=== PATIENT | female | born 1960 | race Caucasian/White ===

== ENCOUNTER → 2017-11-01 12:13 | Outpatient (CLI) | payer BC, SELFPAY ==
[2017-11-01 16:05] LABS: Hep C Virus Ab w/Reflex Quant NEGATIVE s/c (NEGATIVE)
== END ==
PROVIDERS: Visit Provider Internal Medicine Gastroenterology
DX: Z11.59 Encounter for screening for other viral diseases (principal)
CPT/HCPCS: 36415; 86803

== ENCOUNTER 2017-11-30 08:05 | Day surgery (SDC) | payer OTHER, SELFPAY ==
--- NOTE | 2017-11-30 | PATH_ITS ---
[facility] Accession Number: [id number] . 01 Material submitted: . PART A: SMALL BOWEL BIOPSY PART B: GASTRIC POLYPS . 02 Diagnosis: A. Small Bowel, Biopsy: Small bowel mucosa with no diagnostic abnormality. Negative for active inflammation, features of sprue, dysplasia or malignancy. . B. Gastric Polyps: Fundic gland polyp. No evidence of Helicobacter organisms on H/E stain. Negative for intestinal metaplasia, dysplasia or malignancy. MR/12/01/2017 . 02 Electronically signed: . Otilio Dominguez MD, PhD, Pathologist NPI- [id number] . 01 Gross description: . Received two formalin-filled containers, both labeled with the patient's name: . A. In a container labeled small bowel #1, the specimen consists of a 0.3 cm portion of tissue, entirely submitted in cassette A. B. In a container labeled gastric polyps, the specimen consists of a 0.2 cm portion of tissue, entirely submitted in cassette B. ([id number]) /FRR . 02 Pathologist provided ICD-10: K31.7, R19.4 . 02 CPT . 260283, 831021 Performed at: 01 [facility] [address] [facility], [place], [place] [id number] MD Iftikhar Felipe MD Phone: [phone] Performed at: 02 [facility] [address] [place], [place] [id number] MD Joaquin Lobato MD Phone: [phone]
[2017-11-30 08:16] VITALS: BP 148/88; PULSE 74; RESP 15; TEMP 36.2; O2SAT 98; BMI 35.9
[2017-11-30] MEDS: SODIUM CHLORIDE 0.9% 1,000 ML 100 ML IV (08:32)
--- NOTE | 2017-11-30 09:23 | PM.PREOP ---
Pre-operative Note Interval Note Pre-op Check: Yes History & Physical Reviewed by Physician and Yes Exam Performed Changes: No ASA Class (for procedural sedation): II
--- NOTE | 2017-11-30 09:39 | PM.OP.ENDO ---
Operative Date/Time/Diagnoses Date of procedure: 11/30/17 Time of procedure: 09:39 Pre-op diagnosis: See indications Post-op diagnosis: same Procedure & Clinicians Study performed: EGD with biopsy Same procedure as scheduled: Yes Indications: Bloating abdominal discomfort and change in bowel movements Surgeon: Ruth Ann Rodriguez Procedure Notes Procedure in detail: After informed consent was obtained the patient was placed in left lateral decubitus position. The video upper scope was introduced into the oropharynx with the patient's helpful to to the esophagus. The esophagus stomach and duodenum were carefully examined. On withdrawal retroflexed view the GE junction was performed. The scope was removed. The patient tolerated the procedure well. Blood loss none Complications none Sedation Versed 8 mg and fentanyl 100 mcg IV titration Total sedation time 12 min Findings 1. Normal esophagus 2. Multiple gastric polyps biopsied to rule out adenoma. 3. Normal duodenal bulb and sweep biopsies taken to rule out celiac disease Patient will need follow-up with Dr. Dunham to discuss biopsies and further workup.
[2017-11-30 09:42] VITALS: BP 117/76; PULSE 71; RESP 15; TEMP 36; O2SAT 96
[2017-11-30] MEDS: MIDAZOLAM 5 MG/5 ML VIAL IV (09:44)
[2017-11-30] MEDS: fentaNYL 250 MCG/5 ML INJ IV (09:45)
[2017-11-30 09:47] VITALS: BP 128/77; PULSE 82; RESP 14; O2SAT 96
[2017-11-30 09:52] VITALS: BP 126/92; PULSE 102; RESP 18; TEMP 36.1; O2SAT 94
[2017-11-30 10:05] VITALS: BP 121/81; PULSE 80; RESP 16; TEMP 36.2; O2SAT 95
--- NOTE | 2017-11-30 10:21 | SUR.PHASEII ---
pt tolerating sips of water and coffee.
== END 2017-11-30 10:21 | disposition home or self-care (01) ==
PROVIDERS: Visit Provider Internal Medicine Gastroenterology
PROC: 0DJ08ZZ Inspection of Upper Intestinal Tract, Via Natural or Artificial Opening Endoscopic (ICD-10-PCS; CPT 43235; principal; 2017-11-30 09:00)
DX: K31.84 Gastroparesis (principal); K31.7 Polyp of stomach and duodenum; R14.0 Abdominal distension (gaseous); R19.4 Change in bowel habit; E11.9 Type 2 diabetes mellitus without complications; E66.9 Obesity, unspecified; Z68.36 Body mass index [BMI] 36.0-36.9, adult; Z79.4 Long term (current) use of insulin; Z86.010 Personal history of colon polyps; Z87.891 Personal history of nicotine dependence; Z79.899 Other long term (current) drug therapy
CPT/HCPCS: 43239; J2250; J3010

== ENCOUNTER → 2018-12-11 07:31 | Outpatient (CLI) | payer OTHER, SELFPAY ==
--- NOTE | 2018-12-11 | DI.RAD.S_ITS ---
PROCEDURE: FL BARIUM SWALLOW INDICATIONS: Other dysphagia COMPARISON: None. FINDINGS: Function: There is decreased esophageal peristalsis. Delayed esophageal clearance. There is normal transit of a calibrated barium tablet through the esophagus into the stomach. Spontaneous gastroesophageal reflux, which included the barium tablet Morphology: Air-contrast images demonstrate normal mucosal morphology. Single contrast views show no esophageal strictures, extrinsic mass effects, or diverticula. Limited images of the stomach demonstrate normal appearance. IMPRESSION: Esophageal dysmotility. Spontaneous gastroesophageal reflux to the lower third of the esophagus Dictated by: Gio Mosley M.D. on 12/11/2018 10:28 Approved by: Gio Mosley M.D. on 12/11/2018 at 10:34
== END ==
PROVIDERS: PCP Family Medicine; Visit Provider Otolaryngology
DX: R13.19 Other dysphagia (principal); K22.0 Achalasia of cardia; K21.9 Gastro-esophageal reflux disease without esophagitis
CPT/HCPCS: 74220

== ENCOUNTER → 2019-01-01 16:36 | Outpatient (CLI) | payer OTHER, SELFPAY | PROVIDERS: PCP Family Medicine; Visit Provider Orthopaedic Surgery Foot and Ankle Surgery | DX: Z01.818 Encounter for other preprocedural examination (principal) | CPT/HCPCS: 93005 ==

== ENCOUNTER 2020-02-10 11:58 | Emergency (ER) | payer OTHER, SELFPAY ==
[2020-02-10] VITALS (22 sets, daily range): BP systolic 113–224; BP diastolic 57–97; PULSE 62–88; RESP 12–24; TEMP 36.7; O2SAT 96–100; BMI 36.5
--- NOTE | 2020-02-10 12:10 | DI.RAD.S_ITS ---
PROCEDURE: XR CHEST 1V INDICATIONS: chest pain TECHNIQUE: One view of the chest was acquired. COMPARISON: [facility], , CHEST 1 VIEW, 04/05/2015, 15:25. FINDINGS: Surgical changes and devices: None. Lungs and pleura: Lungs are clear. No pleural effusions or pneumothorax. Mediastinum: Mediastinal contours appear normal. Heart size is normal. Bones and chest wall: No suspicious bony lesions. Overlying soft tissues appear unremarkable. IMPRESSION: No evidence of an acute cardiopulmonary abnormality. Dictated by: Danny Craft D.O. on 02/10/2020 at 11:40 Approved by: Danny Craft D.O. on 02/10/2020 at 11:41
[2020-02-10 12:39] LABS: Add Manual Diff / Slide Review NO; Basophils Absolute Auto 100 /uL (0-100); Basophils Percent Auto 1.4 % (0-2); Eosinophils Absolute Auto 100 /uL (0-450); Eosinophils Percent Auto 1.8 % (2-4); Hematocrit 42.5 % (36-46); Hemoglobin 14.5 g/dL (12.0-16.0); Lymphocytes Absolute Auto 2800 /uL (1100-4500); Lymphocytes Percent Auto 41.2 % (25-40); Mean Corpuscular HGB Conc 34.1 % (30-36); Mean Corpuscular Hemoglobin 32.1 PG (26-34); Mean Corpuscular Volume 93.9 fL (80-100); Monocytes Absolute Auto 600 /uL (0-900); Monocytes Percent Auto 8.1 % (3-14); Neutrophils Absolute Auto 3300 /uL (1500-7000); Neutrophils Percent Auto 47.5 % (50-75); Platelet Count 207 X10^3/uL (150-400); Red Blood Cell Count 4.53 X10^6/uL (4.0-5.2); Red Cell Distribution Width 12.2 % (11.6-14.8); White Blood Cell Count 6.8 X10^3/uL (4.5-11.0)
[2020-02-10 12:41] LABS: Prothrombin Time 11.8 SECONDS (10.1-12.7)
[2020-02-10 12:44] LABS: PTT Partial Thromboplastin Tim 32 SECONDS (26.4-36.2)
--- NOTE | 2020-02-10 12:46 | PC.NURSE ---
Addendum entered by Rikki Christie 02/10/20 12:46: She recently had a bowel movement and it was darker than normal. She takes OTC prilosec but does not complain of heart burn. She has been experiencing chest pain for a long time and has associated it with the gastroparesis but has not had shortness of breathe until recently. She says that her shortness of breathe seems to happen around the time when her chest pain and SOB get worse. Original Note: patient has a history of gastroparesis and has been having abnormal bm for some time.
[2020-02-10 12:47] LABS: Alanine Aminotransferase 15 IU/L (<35); Albumin 4.2 g/dL (3.5-5.0); Albumin Globulin Ratio 1.4 (1.0-2.8); Alkaline Phosphatase 124 U/L (38-126); Aspartate Aminotransferase 23 IU/L (14-36); BUN Creatinine Ratio 24.1 (6-22); Bilirubin Total 0.7 mg/dL (0.2-1.3); Blood Urea Nitrogen 19 mg/dL (7-17); Calcium 9.2 mg/dL (8.4-10.2); Carbon Dioxide 29 mmol/L (22-32); Chloride 104 mmol/L (98-107); Creatine Kinase 50 U/L (30-135); Estimated Glomerular Filt Rate > 60.0 mL/min (>60); Globulin 3.1 g/dL (1.7-4.1); Glucose 191 mg/dL (70-100); HEMOLYSIS 16 (0-50); Lipase 165 U/L (23-300); Sodium 138 mmol/L (137-145); Total Protein 7.3 g/dL (6.3-8.2)
[2020-02-10 12:59] LABS: Troponin I < 0.012 ng/mL (0.01-0.034)
[2020-02-10 13:23] LABS: D Dimer 257 ng/mL (<230)
[2020-02-10 13:33] LABS: NT-proBNP (BNP-Adult 18+) 59 pg/mL (<125)
--- NOTE | 2020-02-10 13:40 | ED.CHESTPAIN ---
HPI - Chest Pain <JOHN Roche - Last Filed: 02/10/20 17:50> General Chief Complaint: Chest Pain Stated Complaint: Chest Pains and SOB Time Seen by Provider: 02/10/20 12:52 Source: patient Mode of arrival: Ambulatory Limitations: no limitations History of Present Illness HPI narrative: The patient is a 59-year-old female former smoker with history of atypical chest pain, type 2 diabetes, gastroparesis who presents with a chief complaint of episodic chest pain over the past week. It occurs about once a day, regardless of what she is doing. Today it started at 10:30 while she was cleaning. She says there is associated lightheadedness and dizziness, and she sits down and rest. Sometimes I get better, sometimes it lingers for a while. She denies any fevers, or cough. She complains of associated shortness of breath. No known coronavirus exposure, though her boyfriend is in the hospital for a liver resection. She does state that she is stressed. She does have a history of gastroparesis related to her type 2 diabetes. Denies any muscle aches or chills. States that she has had episodes like this before, it has seen a gunner's mate, and is supposed to get an outpatient monitor next week. She denies any recent immobility or surgeries. Related Data Previous Rx's Medication Instructions Recorded azithromycin 250 mg tablet See Rx Instructions PO .COMPLEX #6 09/09/18 tab benzonatate 100 mg capsule 100 mg PO BID PRN #14 cap 09/09/18 ketorolac 10 mg PO TID PRN #14 tab 02/10/20 Allergies Allergy/AdvReac Type Severity Reaction Status Date / Time loracarbef [From LORABID] Allergy Unknown Verified 09/09/18 12:02 loratadine [From CLARITIN] Allergy Unknown Verified 09/09/18 12:02 meperidine [From DEMEROL] Allergy Unknown Verified 09/09/18 12:02 Review of Systems <JOHN Roche - Last Filed: 02/10/20 17:50> Review of Systems Narrative: GENERAL: Denies chills, fatigue, malaise, fever, sweats. HEENT: Denies sinus pain, ear pain, sore throat, difficulty swallowing, dizziness. RESPIRATORY: See HPI CARDIOVASCULAR: See HPI GASTROINTESTINAL: Denies nausea, vomiting, abdominal pain, diarrhea, constipation, melena. : Denies dysuria, frequency, incontinence, hematuria, urinary retention. MUSCULOSKELETAL: denies weakness, joint pain, or bony pain SKIN: Denies rash, skin lesions, or other NEUROLOGIC: Denies weakness, headache, numbness, change in speech, confusion, seizures, incoordination. PSYCHIATRIC: No concerning psychosocial issues. 12 point review of systems is negative except for those stated above Patient History <RONEL Roche - Last Filed: 02/10/20 17:50> Social History household members: significant other Smoking Status: Former smoker Smoking Status: Former smoker alcohol intake frequency: 0-2 drinks per day Substance Use Type: marijuana Exam <RONEL Roche - Last Filed: 02/10/20 17:50> Narrative Exam Narrative: GENERAL: This is a well-nourished, well-developed patient, in no acute distress HEAD: Atraumatic. Normocephalic. No temporal or scalp tenderness. EYES: Pupils equal round and reactive. Extraocular motions intact. No scleral icterus. No injection or drainage. ENT: Nose without bleeding, purulent drainage or septal hematoma. Throat without erythema, tonsillar hypertrophy or exudate. Uvula midline. Airway patent. NECK: Trachea midline. No JVD or lymphadenopathy. Supple, nontender, no meningeal signs. CARDIOVASCULAR: Regular rate and rhythm RESPIRATORY: Clear to auscultation. Breath sounds equal bilaterally. No wheezes, rales, or rhonchi. No cough. No increased respiratory effort. No accessory muscle use. Pain to palpation of right-sided costochondral joints, pain to anterior posterior chest wall compression as well as lateral chest wall compression. GASTROINTESTINAL: Abdomen soft, non-tender, nondistended. No hepato-splenomegaly, or palpable masses. No guarding. Active bowel sounds all 4 quadrants EXTREMITIES: No clubbing, cyanosis, or edema. No joint tenderness, effusion, or edema noted. BACK: Nontender without deformity or crepitance. No flank tenderness. NEURO: AOx3. SKIN: No rash or erythema. Initial Vital Signs Initial Vital Signs: Vital Signs Temperature 98.1 F 02/10/20 12:11 Pulse Rate 88 02/10/20 12:11 Respiratory Rate 18 02/10/20 12:11 Blood Pressure 224/97 H 02/10/20 12:11 Pulse Oximetry 98 02/10/20 12:11 <Linda Isaac DO - Last Filed: 02/11/20 07:17> Initial Vital Signs Initial Vital Signs: Vital Signs Temperature 98.1 F 02/10/20 12:11 Pulse Rate 88 02/10/20 12:11 Respiratory Rate 18 02/10/20 12:11 Blood Pressure 224/97 H 02/10/20 12:11 Pulse Oximetry 98 02/10/20 12:11 Scores <JOHN Roche - Last Filed: 02/10/20 17:50> GCS [place] coma scale eye opening: Spontaneous [place] coma scale verbal response: Orientated [place] coma scale motor response: Obey commands L[place] coma scale total score: 15 PERC Score Age greater than or equal to 50 years: Yes Heart rate greater than or equal to 100 bpm: No Room Air O2 Sat less than 95%: No Unilateral leg swelling: No Recent trauma or surgery: No Hemoptysis: No Prior PE or DVT: No Hormone Use: No Total PERC Score: 1 Course <JOHN Roche - Last Filed: 02/10/20 17:50> Orders Ordered: Discontinued Medications Ketorolac Tromethamine (Ketorolac 60 Mg/2 Ml Vial) 30 mg IV NOW ONE Stop: 02/10/20 14:14 Last Admin: 02/10/20 14:18 Dose: 30 mg Documented by: SHIRLEY Vital Signs Vital signs: Vital Signs - 8 hr 02/10/20 12:11 02/10/20 12:21 02/10/20 12:22 Temperature 98.1 F Pulse Rate 88 78 Respiratory Rate 18 20 Blood Pressure 224/97 H 179/80 H Pulse Oximetry 98 97 02/10/20 12:30 02/10/20 12:40 02/10/20 13:00 Temperature Pulse Rate 77 74 75 Respiratory Rate 16 19 24 Blood Pressure 127/73 Pulse Oximetry 96 96 96 02/10/20 13:20 02/10/20 13:30 02/10/20 13:40 Temperature Pulse Rate 71 69 68 Respiratory Rate 21 16 15 Blood Pressure 146/70 H 129/68 Pulse Oximetry 97 97 99 02/10/20 14:00 02/10/20 14:20 02/10/20 14:30 Temperature Pulse Rate 67 66 66 Respiratory Rate 13 18 14 Blood Pressure 113/62 132/60 Pulse Oximetry 97 100 100 02/10/20 14:41 02/10/20 15:00 02/10/20 15:01 Temperature Pulse Rate 66 67 66 Respiratory Rate 21 16 12 Blood Pressure 120/57 L 126/67 Pulse Oximetry 99 99 99 02/10/20 15:20 02/10/20 15:30 02/10/20 15:40 Temperature Pulse Rate 62 64 Respiratory Rate 22 20 Blood Pressure 155/67 H 131/71 Pulse Oximetry 100 99 02/10/20 16:00 02/10/20 16:01 02/10/20 16:20 Temperature Pulse Rate 68 66 68 Respiratory Rate 22 20 15 Blood Pressure 153/78 H 133/76 Pulse Oximetry 99 99 99 02/10/20 16:30 Temperature Pulse Rate 65 Respiratory Rate 16 Blood Pressure Pulse Oximetry 100 <Linda Isaac DO - Last Filed: 02/11/20 07:17> Orders Ordered: Discontinued Medications Ketorolac Tromethamine (Ketorolac 60 Mg/2 Ml Vial) 30 mg IV NOW ONE Stop: 02/10/20 14:14 Last Admin: 02/10/20 14:18 Dose: 30 mg Documented by: SHIRLEY Vital Signs Vital signs: Vital Signs - 8 hr 02/10/20 12:11 02/10/20 12:21 02/10/20 12:22 Temperature 98.1 F Pulse Rate 88 78 Respiratory Rate 18 20 Blood Pressure 224/97 H 179/80 H Pulse Oximetry 98 97 02/10/20 12:30 02/10/20 12:40 02/10/20 13:00 Temperature Pulse Rate 77 74 75 Respiratory Rate 16 19 24 Blood Pressure 127/73 Pulse Oximetry 96 96 96 02/10/20 13:20 02/10/20 13:30 02/10/20 13:40 Temperature Pulse Rate 71 69 68 Respiratory Rate 21 16 15 Blood Pressure 146/70 H 129/68 Pulse Oximetry 97 97 99 02/10/20 14:00 02/10/20 14:20 02/10/20 14:30 Temperature Pulse Rate 67 66 66 Respiratory Rate 13 18 14 Blood Pressure 113/62 132/60 Pulse Oximetry 97 100 100 02/10/20 14:41 02/10/20 15:00 02/10/20 15:01 Temperature Pulse Rate 66 67 66 Respiratory Rate 21 16 12 Blood Pressure 120/57 L 126/67 Pulse Oximetry 99 99 99 02/10/20 15:20 02/10/20 15:30 02/10/20 15:40 Temperature Pulse Rate 62 64 Respiratory Rate 22 20 Blood Pressure 155/67 H 131/71 Pulse Oximetry 100 99 02/10/20 16:00 02/10/20 16:01 02/10/20 16:20 Temperature Pulse Rate 68 66 68 Respiratory Rate 22 20 15 Blood Pressure 153/78 H 133/76 Pulse Oximetry 99 99 99 02/10/20 16:30 Temperature Pulse Rate 65 Respiratory Rate 16 Blood Pressure Pulse Oximetry 100 MDM - Chest Pain <JENNIFER Roche-BC - Last Filed: 02/10/20 17:50> Differential Diagnosis Differential diagnosis: Likely stable angina, unstable angina pectoris, atypical chest pain, st elevation myocardial infarction and costochondritis Lab Data Attestation: I reviewed the patient's lab results. Result diagrams: 02/10/20 12:18 02/10/20 12:18 Labs: Lab Results 02/10/20 02/10/20 02/10/20 Range/Units 12:18 12:18 12:18 WBC 6.8 (4.5-11.0) X10^3/uL RBC 4.53 (4.0-5.2) X10^6/uL Hgb 14.5 (12.0-16.0) g/dL Hct 42.5 (36-46) % MCV 93.9 (80-100) fL MCH 32.1 (26-34) PG MCHC 34.1 (30-36) % RDW 12.2 (11.6-14.8) % Plt Count 207 (150-400) X10^3/uL Neut % (Auto) 47.5 L (50-75) % Lymph % (Auto) 41.2 H (25-40) % [place] % (Auto) 8.1 (3-14) % Eos % (Auto) 1.8 L (2-4) % Baso % (Auto) 1.4 (0-2) % Neut # (Auto) 3300 (9187-2670) /uL Lymph # (Auto) 2800 (5247-3786) /uL [place] # (Auto) 600 (0-900) /uL Eos # (Auto) 100 (0-450) /uL Baso # (Auto) 100 (0-100) /uL PT 11.8 (10.1-12.7) SECONDS INR 1.0 (0.9-1.3) APTT 32 (26.4-36.2) SECONDS D-Dimer (<230) ng/mL Sodium 138 (137-145) mmol/L Potassium 4.0 (3.4-5.1) mmol/L Chloride 104 (98-107) mmol/L Carbon Dioxide 29 (22-32) mmol/L BUN 19 H (7-17) mg/dL Creatinine 0.79 (0.52-1.04) mg/dL Estimated GFR > 60.0 (>60) mL/min BUN/Creatinine Ratio 24.1 H (6-22) Glucose 191 H (70-100) mg/dL Calcium 9.2 (8.4-10.2) mg/dL Total Bilirubin 0.7 (0.2-1.3) mg/dL AST 23 (14-36) IU/L ALT 15 (<35) IU/L Alkaline Phosphatase 124 (38-126) U/L Total Creatine Kinase 50 (30-135) U/L CK-MB (CK-2) TNP CK-MB (CK-2) Rel Index TNP Troponin I < 0.012 (0.01-0.034) ng/mL NT-Pro-B Natriuret Pep (<125) pg/mL Total Protein 7.3 (6.3-8.2) g/dL Albumin 4.2 (3.5-5.0) g/dL Globulin 3.1 (1.7-4.1) g/dL Albumin/Globulin Ratio 1.4 (1.0-2.8) Lipase 165 (23-300) U/L COVID-19 PCR (Negative) 02/10/20 02/10/20 02/10/20 Range/Units 12:18 12:18 13:20 WBC (4.5-11.0) X10^3/uL RBC (4.0-5.2) X10^6/uL Hgb (12.0-16.0) g/dL Hct (36-46) % MCV (80-100) fL MCH (26-34) PG MCHC (30-36) % RDW (11.6-14.8) % Plt Count (150-400) X10^3/uL Neut % (Auto) (50-75) % Lymph % (Auto) (25-40) % [place] % (Auto) (3-14) % Eos % (Auto) (2-4) % Baso % (Auto) (0-2) % Neut # (Auto) (5685-0054) /uL Lymph # (Auto) (5636-3781) /uL [place] # (Auto) (0-900) /uL Eos # (Auto) (0-450) /uL Baso # (Auto) (0-100) /uL PT (10.1-12.7) SECONDS INR (0.9-1.3) APTT (26.4-36.2) SECONDS D-Dimer 257 H (<230) ng/mL Sodium (137-145) mmol/L Potassium (3.4-5.1) mmol/L Chloride (98-107) mmol/L Carbon Dioxide (22-32) mmol/L BUN (7-17) mg/dL Creatinine (0.52-1.04) mg/dL Estimated GFR (>60) mL/min BUN/Creatinine Ratio (6-22) Glucose (70-100) mg/dL Calcium (8.4-10.2) mg/dL Total Bilirubin (0.2-1.3) mg/dL AST (14-36) IU/L ALT (<35) IU/L Alkaline Phosphatase (38-126) U/L Total Creatine Kinase (30-135) U/L CK-MB (CK-2) CK-MB (CK-2) Rel Index Troponin I (0.01-0.034) ng/mL NT-Pro-B Natriuret Pep 59 (<125) pg/mL Total Protein (6.3-8.2) g/dL Albumin (3.5-5.0) g/dL Globulin (1.7-4.1) g/dL Albumin/Globulin Ratio (1.0-2.8) Lipase (23-300) U/L COVID-19 PCR Negative (Negative) 02/10/20 Range/Units 15:15 WBC (4.5-11.0) X10^3/uL RBC (4.0-5.2) X10^6/uL Hgb (12.0-16.0) g/dL Hct (36-46) % MCV (80-100) fL MCH (26-34) PG MCHC (30-36) % RDW (11.6-14.8) % Plt Count (150-400) X10^3/uL Neut % (Auto) (50-75) % Lymph % (Auto) (25-40) % [place] % (Auto) (3-14) % Eos % (Auto) (2-4) % Baso % (Auto) (0-2) % Neut # (Auto) (3761-1904) /uL Lymph # (Auto) (4512-6659) /uL [place] # (Auto) (0-900) /uL Eos # (Auto) (0-450) /uL Baso # (Auto) (0-100) /uL PT (10.1-12.7) SECONDS INR (0.9-1.3) APTT (26.4-36.2) SECONDS D-Dimer (<230) ng/mL Sodium (137-145) mmol/L Potassium (3.4-5.1) mmol/L Chloride (98-107) mmol/L Carbon Dioxide (22-32) mmol/L BUN (7-17) mg/dL Creatinine (0.52-1.04) mg/dL Estimated GFR (>60) mL/min BUN/Creatinine Ratio (6-22) Glucose (70-100) mg/dL Calcium (8.4-10.2) mg/dL Total Bilirubin (0.2-1.3) mg/dL AST (14-36) IU/L ALT (<35) IU/L Alkaline Phosphatase (38-126) U/L Total Creatine Kinase 44 (30-135) U/L CK-MB (CK-2) TNP CK-MB (CK-2) Rel Index TNP Troponin I < 0.012 (0.01-0.034) ng/mL NT-Pro-B Natriuret Pep (<125) pg/mL Total Protein (6.3-8.2) g/dL Albumin (3.5-5.0) g/dL Globulin (1.7-4.1) g/dL Albumin/Globulin Ratio (1.0-2.8) Lipase (23-300) U/L COVID-19 PCR (Negative) Imaging Data Chest x-ray: Radiologist's Impression: [address] [place] [id number] ReportSigned Patient: Jackie Stauffer RMR#: [id number]: 1Acct:[id number]/Sex: 59 / FDate of Service: 02/10/20Loc: EDAccession Number: [id number] Procedure: XR chest 1V Ordering Provider: Linda Isaac D.O. PROCEDURE: XR CHEST 1V INDICATIONS: chest pain TECHNIQUE: One view of the chest was acquired. COMPARISON: [facility], CHEST 1 VIEW, 04/05/2015, 15:25. FINDINGS: Surgical changes and devices: None. Lungs and pleura: Lungs are clear. No pleural effusions or pneumothorax. Mediastinum: Mediastinal contours appear normal. Heart size is normal. Bones and chest wall: No suspicious bony lesions. Overlying soft tissues appear unremarkable. IMPRESSION: No evidence of an acute cardiopulmonary abnormality. Dictated by: Danny Craft D.O. on 02/10/2020 at 11:40 Approved by: Danny Craft D.O. on 02/10/2020 at 11:41 ECG Data Attestation: I personally reviewed and interpreted this ECG as follows: Interpretation: Sinus rhythm. Ventricular rate 61. P.r. interval 195. QRS 87. Viewedb y Dr Isaac [facility] Narrative Medical decision making narrative: The patient is a 59-year-old female with history of type 2 diabetes, hypertension hyperlipidemia who presents with a chief complaint of episodic chest pain over the past week. It is reproducible with palpation. Her initial troponin is negative, her 3 hour repeat troponin is also negative. The patient feels much improved after single dose of Toradol, and states that her pain went away completely. Pain to costochondral joints on right side that resolves with NSAIDs illustrate likely a costochondritis. Her BNP is normal, D-dimer is within normal limits for age, coronavirus test is negative, chest x-ray is no acute findings. The patient does have multiple cardiac risk factors include hyperlipidemia, hypertension and type 2 diabetes. I did discuss that normal evaluation today does not rule out any future events. Discussed the possibility of admission for full cardiac about, however the patient prefers to go home does not want to stay in the hospital. I did discuss that she is at length willing and able to come back to the ER for any acute concerns including chest pain shortness of breath concern of heart attack or stroke. Discussed patient case with Dr. Isaac. Patient understands return precautions as well as follow-up care and has no questions or concerns upon discharge. Prescription of ketorolac provided. <Linda Isaac, DO - Last Filed: 02/11/20 07:17> Lab Data Labs: Lab Results 02/10/20 02/10/20 02/10/20 Range/Units 12:18 12:18 12:18 WBC 6.8 (4.5-11.0) X10^3/uL RBC 4.53 (4.0-5.2) X10^6/uL Hgb 14.5 (12.0-16.0) g/dL Hct 42.5 (36-46) % MCV 93.9 (80-100) fL MCH 32.1 (26-34) PG MCHC 34.1 (30-36) % RDW 12.2 (11.6-14.8) % Plt Count 207 (150-400) X10^3/uL Neut % (Auto) 47.5 L (50-75) % Lymph % (Auto) 41.2 H (25-40) % [place] % (Auto) 8.1 (3-14) % Eos % (Auto) 1.8 L (2-4) % Baso % (Auto) 1.4 (0-2) % Neut # (Auto) 3300 (7633-9501) /uL Lymph # (Auto) 2800 (1985-4239) /uL [place] # (Auto) 600 (0-900) /uL Eos # (Auto) 100 (0-450) /uL Baso # (Auto) 100 (0-100) /uL PT 11.8 (10.1-12.7) SECONDS INR 1.0 (0.9-1.3) APTT 32 (26.4-36.2) SECONDS D-Dimer (<230) ng/mL Sodium 138 (137-145) mmol/L Potassium 4.0 (3.4-5.1) mmol/L Chloride 104 (98-107) mmol/L Carbon Dioxide 29 (22-32) mmol/L BUN 19 H (7-17) mg/dL Creatinine 0.79 (0.52-1.04) mg/dL Estimated GFR > 60.0 (>60) mL/min BUN/Creatinine Ratio 24.1 H (6-22) Glucose 191 H (70-100) mg/dL Calcium 9.2 (8.4-10.2) mg/dL Total Bilirubin 0.7 (0.2-1.3) mg/dL AST 23 (14-36) IU/L ALT 15 (<35) IU/L Alkaline Phosphatase 124 (38-126) U/L Total Creatine Kinase 50 (30-135) U/L CK-MB (CK-2) TNP CK-MB (CK-2) Rel Index TNP Troponin I < 0.012 (0.01-0.034) ng/mL NT-Pro-B Natriuret Pep (<125) pg/mL Total Protein 7.3 (6.3-8.2) g/dL Albumin 4.2 (3.5-5.0) g/dL Globulin 3.1 (1.7-4.1) g/dL Albumin/Globulin Ratio 1.4 (1.0-2.8) Lipase 165 (23-300) U/L COVID-19 PCR (Negative) 02/10/20 02/10/20 02/10/20 Range/Units 12:18 12:18 13:20 WBC (4.5-11.0) X10^3/uL RBC (4.0-5.2) X10^6/uL Hgb (12.0-16.0) g/dL Hct (36-46) % MCV (80-100) fL MCH (26-34) PG MCHC (30-36) % RDW (11.6-14.8) % Plt Count (150-400) X10^3/uL Neut % (Auto) (50-75) % Lymph % (Auto) (25-40) % [place] % (Auto) (3-14) % Eos % (Auto) (2-4) % Baso % (Auto) (0-2) % Neut # (Auto) (8921-3757) /uL Lymph # (Auto) (5067-7354) /uL [place] # (Auto) (0-900) /uL Eos # (Auto) (0-450) /uL Baso # (Auto) (0-100) /uL PT (10.1-12.7) SECONDS INR (0.9-1.3) APTT (26.4-36.2) SECONDS D-Dimer 257 H (<230) ng/mL Sodium (137-145) mmol/L Potassium (3.4-5.1) mmol/L Chloride (98-107) mmol/L Carbon Dioxide (22-32) mmol/L BUN (7-17) mg/dL Creatinine (0.52-1.04) mg/dL Estimated GFR (>60) mL/min BUN/Creatinine Ratio (6-22) Glucose (70-100) mg/dL Calcium (8.4-10.2) mg/dL Total Bilirubin (0.2-1.3) mg/dL AST (14-36) IU/L ALT (<35) IU/L Alkaline Phosphatase (38-126) U/L Total Creatine Kinase (30-135) U/L CK-MB (CK-2) CK-MB (CK-2) Rel Index Troponin I (0.01-0.034) ng/mL NT-Pro-B Natriuret Pep 59 (<125) pg/mL Total Protein (6.3-8.2) g/dL Albumin (3.5-5.0) g/dL Globulin (1.7-4.1) g/dL Albumin/Globulin Ratio (1.0-2.8) Lipase (23-300) U/L COVID-19 PCR Negative (Negative) 02/10/20 Range/Units 15:15 WBC (4.5-11.0) X10^3/uL RBC (4.0-5.2) X10^6/uL Hgb (12.0-16.0) g/dL Hct (36-46) % MCV (80-100) fL MCH (26-34) PG MCHC (30-36) % RDW (11.6-14.8) % Plt Count (150-400) X10^3/uL Neut % (Auto) (50-75) % Lymph % (Auto) (25-40) % [place] % (Auto) (3-14) % Eos % (Auto) (2-4) % Baso % (Auto) (0-2) % Neut # (Auto) (5533-9975) /uL Lymph # (Auto) (2541-0554) /uL [place] # (Auto) (0-900) /uL Eos # (Auto) (0-450) /uL Baso # (Auto) (0-100) /uL PT (10.1-12.7) SECONDS INR (0.9-1.3) APTT (26.4-36.2) SECONDS D-Dimer (<230) ng/mL Sodium (137-145) mmol/L Potassium (3.4-5.1) mmol/L Chloride (98-107) mmol/L Carbon Dioxide (22-32) mmol/L BUN (7-17) mg/dL Creatinine (0.52-1.04) mg/dL Estimated GFR (>60) mL/min BUN/Creatinine Ratio (6-22) Glucose (70-100) mg/dL Calcium (8.4-10.2) mg/dL Total Bilirubin (0.2-1.3) mg/dL AST (14-36) IU/L ALT (<35) IU/L Alkaline Phosphatase (38-126) U/L Total Creatine Kinase 44 (30-135) U/L CK-MB (CK-2) TNP CK-MB (CK-2) Rel Index TNP Troponin I < 0.012 (0.01-0.034) ng/mL NT-Pro-B Natriuret Pep (<125) pg/mL Total Protein (6.3-8.2) g/dL Albumin (3.5-5.0) g/dL Globulin (1.7-4.1) g/dL Albumin/Globulin Ratio (1.0-2.8) Lipase (23-300) U/L COVID-19 PCR (Negative) Discharge Plan Departure Patient Disposition: Home Clinical Impression: Atypical chest pain, Costochondritis Instructions: DI for Atypical Chest Pain, DI for Costochondritis, DI for Chest Pain Activity Restrictions/Additional Instructions: Thank you for trusting us with your care today. As discussed, your EKG and lab work came back well today. Your coronavirus test was negative. Your chest x-ray has no acute findings. The fact that your chest pain is reproducible when your chest wall is pressed on makes this pain likely to be musculoskeletal. This can be caused by inflammation of cartilage in the chest wall. I sent a prescription of ketorolac or Toradol to [facility]. I have given you a prescription of Toradol. This is an NSAID. Do not combine it with other NSAIDs such as Aleve or ibuprofen. I suggest taking it with some food, as it can irritate your stomach. Please follow-up with primary care provider the next few days. Please follow-up with your gunner's mate as well. As discussed, please come back to the emergency department for any acute concerns including concerns of chest pain, shortness of breath, concern of heart attack or stroke. As discussed, just because your workup came back negative today does not mean that something might happen in the future. Prescriptions: New ketorolac 10 mg tablet 10 mg PO TID PRN (Reason: pain) Qty: 14 RF: 0 No Action azithromycin 250 mg tablet See Rx Instructions PO .COMPLEX Qty: 6 RF: 0 benzonatate [Tessalon Perles] 100 mg capsule 100 mg PO BID PRN (Reason: cough) Qty: 14 RF: 0 Referrals: Maite Pierce DO [Primary Care Provider] - <Linda Isaac DO - Last Filed: 02/11/20 07:17> Cosign ED Attending Angeliature Attestation: I was immediately available in the department for consultation. Documentation has been reviewed. I agree with assessment and plan.
[2020-02-10 13:50] LABS: COVID19 -Nasal RAPID Negative (Negative)
[2020-02-10] MEDS: KETOROLAC 60 MG/2 ML VIAL 30 MG IV (14:18)
[2020-02-10 15:33] LABS: Creatine Kinase 44 U/L (30-135)
[2020-02-10 15:46] LABS: Troponin I < 0.012 ng/mL (0.01-0.034)
== END 2020-02-10 16:41 | disposition home or self-care (01) ==
PROVIDERS: Emergency Medicine; Emergency Provider Nurse Practitioner Family; PCP Family Medicine
DX: R07.89 Other chest pain (principal); M94.0 Chondrocostal junction syndrome [Tietze]; R42 Dizziness and giddiness; E11.9 Type 2 diabetes mellitus without complications; I10 Essential (primary) hypertension; E78.5 Hyperlipidemia, unspecified
CPT/HCPCS: 36415; 71045; 80053; 82550; 83690; 83880; 84484; 85025; 85379; 85610; 85730; 87635; 93005; 93010; 96374; 99283; 99284; J1885

== ENCOUNTER 2020-09-25 16:36 | Emergency (ER) | payer OTHER, SELFPAY ==
[2020-09-25 16:48] VITALS: BP 177/72; PULSE 84; RESP 18; TEMP 37.1; O2SAT 99; BMI 37.2
[2020-09-25 18:06] LABS: Add Manual Diff / Slide Review NO; Basophils Absolute Auto 100 /uL (0-100); Basophils Percent Auto 1.4 % (0-2); Eosinophils Absolute Auto 200 /uL (0-450); Eosinophils Percent Auto 1.9 % (2-4); Hematocrit 43.1 % (36-46); Hemoglobin 14.5 g/dL (12.0-16.0); Lymphocytes Absolute Auto 3300 /uL (1100-4500); Lymphocytes Percent Auto 33.7 % (25-40); Mean Corpuscular HGB Conc 33.7 % (30-36); Mean Corpuscular Hemoglobin 32.6 PG (26-34); Mean Corpuscular Volume 96.8 fL (80-100); Monocytes Absolute Auto 600 /uL (0-900); Monocytes Percent Auto 5.9 % (3-14); Neutrophils Absolute Auto 5500 /uL (1500-7000); Neutrophils Percent Auto 57.1 % (50-75); Platelet Count 214 X10^3/uL (150-400); Red Blood Cell Count 4.45 X10^6/uL (4.0-5.2); Red Cell Distribution Width 12.7 % (11.6-14.8); White Blood Cell Count 9.7 X10^3/uL (4.5-11.0)
[2020-09-25 18:19] LABS: Alanine Aminotransferase 16 IU/L (<35); Albumin 4.4 g/dL (3.5-5.0); Albumin Globulin Ratio 1.4 (1.0-2.8); Alkaline Phosphatase 101 U/L (38-126); Aspartate Aminotransferase 25 IU/L (14-36); BUN Creatinine Ratio 22.5 (6-22); Bilirubin Total 0.4 mg/dL (0.2-1.3); Blood Urea Nitrogen 18 mg/dL (7-17); Calcium 10.1 mg/dL (8.4-10.2); Carbon Dioxide 31 mmol/L (22-32); Chloride 104 mmol/L (98-107); Estimated Glomerular Filt Rate > 60.0 mL/min (>60); Globulin 3.1 g/dL (1.7-4.1); Glucose 137 mg/dL (70-100); HEMOLYSIS < 15 (0-50); Potassium 4.2 mmol/L (3.4-5.1); Sodium 140 mmol/L (137-145); Total Protein 7.5 g/dL (6.3-8.2)
[2020-09-25 20:56] VITALS: BP 157/69; PULSE 69; RESP 14; O2SAT 99
--- NOTE | 2020-09-25 20:56 | ED.NEUROSD ---
HPI - Neuro Symptoms/Deficit General Chief Complaint: Neuro Symptoms/Deficit Stated Complaint: Facial Numbness/Pins and [place] Time Seen by Provider: 09/25/20 17:35 Source: patient Mode of arrival: Ambulatory Limitations: no limitations History of Present Illness HPI Narrative: 59-year-old female former smoker presents at the request of her neurologist for evaluation. She has had many weeks if not months of episodes of numbness and tingling of her face and occasional pins and needles. She denies any blurred vision or trouble with speech. She denies any headache, neck pain or extremity discomfort. She has had no chest pain or shortness of breath. She denies nausea, vomiting or diarrhea. She denies any new medications or dietary change. She has seen a neurologist for this and states she is in the process of evaluation and has done physical therapy due to possible concerns of neck involvement. Her neurologist asked her to come CS because of some episodes of dizziness that are not currently present. She has been told that she cannot get imaging as an outpatient due to insurance and prior authorization problems. On Anticoagulants: No Related Data Previous Rx's Medication Instructions Recorded azithromycin 250 mg tablet See Rx Instructions PO .COMPLEX #6 09/09/18 tab benzonatate 100 mg capsule 100 mg PO BID PRN #14 cap 09/09/18 (Tessalon Perles) ketorolac 10 mg tablet 10 mg PO TID PRN #14 tab 02/10/20 Allergies Allergy/AdvReac Type Severity Reaction Status Date / Time loracarbef [From LORABID] Allergy Unknown Verified 09/09/18 12:02 loratadine [From CLARITIN] Allergy Unknown Verified 09/09/18 12:02 meperidine [From DEMEROL] Allergy Unknown Verified 09/09/18 12:02 Review of Systems Review of Systems Narrative: GENERAL: See HPI HEENT: Denies sinus pain, ear pain, sore throat, difficulty swallowing, dizziness. RESPIRATORY: Denies dyspnea, cough, wheezing, hemoptysis, sputum. CARDIOVASCULAR: Denies chest pain, palpitations, orthopnea, edema, GASTROINTESTINAL: Denies nausea, vomiting, abdominal pain, diarrhea, constipation, melena. : Denies dysuria, frequency, incontinence, hematuria, urinary retention. MUSCULOSKELETAL: denies weakness, joint pain, or bony pain SKIN: Denies rash, skin lesions, or other NEUROLOGIC: See HPI PSYCHIATRIC: No concerning psychosocial issues. 12 point review of systems is negative except for those stated above Hematologic/Lymphatic On Anticoagulants: No Patient History Social History household members: significant other Smoking Status: Former smoker Smoking Status: Former smoker alcohol intake frequency: 0-2 drinks per day Substance Use Type: marijuana Exam Narrative Exam Narrative: GENERAL: [59] year old patient appears stated age. Well-developed patient, in mild distress. HEAD: Atraumatic. Normocephalic. EYES: Pupils equal round and reactive. Extraocular motions intact. No scleral icterus. No injection or drainage. ENT: Nose without bleeding, purulent drainage. Throat without erythema, tonsillar hypertrophy or exudate. Airway patent. NECK: Trachea midline. Non tender CARDIOVASCULAR: Regular rate and rhythm without murmurs, gallops, or rubs. RESPIRATORY: Clear to auscultation. Breath sounds equal bilaterally. No wheezes, rales, or rhonchi. GASTROINTESTINAL: Abdomen soft, non-tender, nondistended. EXTREMITIES: No edema or joint tenderness. BACK: Nontender without deformity or crepitance. No flank tenderness. NEURO: AOx3. SKIN: No rash or erythema of visible areas NIH Stroke Scale 1a. LOC: Patient is alert and keenly responsive (0) 1b. LOC Questions: Patient answers both LOC questions accurately (0) 1c. LOC Commands: Patient performs both tasks correctly (0) 2. Best Gaze: Normal (0) 3. Visual: No visual loss (0) 4. Facial palsy: Normal symmetrical movements (0) 5. Motor arm: No drift (0) 6. Motor leg: No drift (0) 7. Limb ataxia: Absent (0) 8. Sensory: Normal (0) 9. Best language: No aphasia; normal (0) 10. Dysarthria: Normal (0) 11. Extinction and inattention: No abnormality (0) NIHSS: 0 Initial Vital Signs Initial Vital Signs: Vital Signs Temperature 98.7 F 09/25/20 16:48 Pulse Rate 84 09/25/20 16:48 Respiratory Rate 18 09/25/20 16:48 Blood Pressure 177/72 H 09/25/20 16:48 Pulse Oximetry 99 09/25/20 16:48 Course Orders Ordered: ED Orders 09/25/20 17:41 EKG-12 Lead Stat 09/25/20 17:46 Complete Blood Count AUTO DIFF Stat Comprehensive Metabolic Panel Stat 09/25/20 21:00 CT head/brain wo con Stat EKG-12 Lead Stat Vital Signs Vital signs: Vital Signs - 8 hr 09/25/20 20:56 Pulse Rate 69 Respiratory Rate 14 Blood Pressure 157/69 H Pulse Oximetry 99 MDM - Neuro Symptoms/Deficit Lab Data Result diagrams: 09/25/20 17:46 09/25/20 17:46 Labs: Lab Results 09/25/20 09/25/20 Range/Units 17:46 17:46 WBC 9.7 (4.5-11.0) X10^3/uL RBC 4.45 (4.0-5.2) X10^6/uL Hgb 14.5 (12.0-16.0) g/dL Hct 43.1 (36-46) % MCV 96.8 (80-100) fL MCH 32.6 (26-34) PG MCHC 33.7 (30-36) % RDW 12.7 (11.6-14.8) % Plt Count 214 (150-400) X10^3/uL Neut % (Auto) 57.1 (50-75) % Lymph % (Auto) 33.7 (25-40) % [place] % (Auto) 5.9 (3-14) % Eos % (Auto) 1.9 L (2-4) % Baso % (Auto) 1.4 (0-2) % Neut # (Auto) 5500 (5793-9522) /uL Lymph # (Auto) 3300 (4768-6595) /uL [place] # (Auto) 600 (0-900) /uL Eos # (Auto) 200 (0-450) /uL Baso # (Auto) 100 (0-100) /uL Sodium 140 (137-145) mmol/L Potassium 4.2 (3.4-5.1) mmol/L Chloride 104 (98-107) mmol/L Carbon Dioxide 31 (22-32) mmol/L BUN 18 H (7-17) mg/dL Creatinine 0.80 (0.52-1.04) mg/dL Estimated GFR > 60.0 (>60) mL/min BUN/Creatinine Ratio 22.5 H (6-22) Glucose 137 H (70-100) mg/dL Calcium 10.1 (8.4-10.2) mg/dL Total Bilirubin 0.4 (0.2-1.3) mg/dL AST 25 (14-36) IU/L ALT 16 (<35) IU/L Alkaline Phosphatase 101 (38-126) U/L Total Protein 7.5 (6.3-8.2) g/dL Albumin 4.4 (3.5-5.0) g/dL Globulin 3.1 (1.7-4.1) g/dL Albumin/Globulin Ratio 1.4 (1.0-2.8) Imaging Data CT scan - head: Radiologist's Impression: [address] [id number] Scan ReportSigned Patient: Jackie Stauffer RMR#: [id number]: 1960cct:[id number]/Sex: 59 / FDate of Service: 09/25/20Loc: EDAccession Number: [id number] Procedure: CT head/brain wo con Ordering Provider: Evelio Kelly D.O. PROCEDURE: CT HEAD/BRAIN WO CON INDICATIONS: dizzy, lightheaded and facial tingling, sent by her neurology TECHNIQUE: Noncontrast 4.5 mm thick angled axial sections acquired from the foramen magnum to the vertex, with coronal and sagittal reformats. For radiation dose reduction, the following was used: automated exposure control, adjustment of mA and/or kV according to patient size. COMPARISON: None. FINDINGS: Image quality: Excellent. CSF spaces: Basal cisterns are patent. No extra-axial fluid collections. Ventricles are normal in size and shape. Brain: No midline shift. No intracranial masses or hemorrhage. Murray-white matter interface is normal. Skull and face: Calvarium and visualized facial bones are intact, without suspicious lesions. Sinuses: There is an air-fluid level in the right maxillary sinus. Mastoids are clear. IMPRESSION: 1. No acute intracranial abnormalities. 2. Right maxillary sinus disease. Dictated by: Sherine Vaughan M.D. on 09/25/2020 at 21:52 Approved by: Sherine Vaughan M.D. on 09/25/2020 at 21:53 [facility] Narrative Medical decision making narrative: Patient presents with chronic symptoms that are currently not present with the addition of occasional dizziness which is also not present. Multiple diagnoses considered including possible brain bleed versus electrolyte disturbance versus anemia versus other. She is currently not having symptoms, physical exam is reassuring, labs show no obviously reversible cause and CT is unremarkable. She has been given return precautions and questions answered to her apparent satisfaction Discharge Plan Departure Patient Disposition: Home Clinical Impression: Facial numbness, Dizziness Instructions: DI for Dizziness-Nonvertigo Activity Restrictions/Additional Instructions: *You have been diagnosed with [episodes of facial numbness and tingling and episodic dizziness. Your physical exam, labs and CT scan are very reassuring today and there is no indication that any intervention is needed] *What to do: *Please continue to take your regular medications as directed. [ ] New medication prescriptions sent to your pharmacy: [ ] [ ] New medication written as a paper prescription [ x] No new medications given *Please follow up with your primary care provider in 2-3 days, call for an appointment. Let them know you were seen in the Emergency Department and that we ask that you be seen in follow up. We will electronically transmit a record of today's note if your PCP is in our system *If you do not have a primary care provider please contact the [facility] Resource line at [phone]. They will ask some questions about your medical history and help get you set up with a doctor in the community. *Return to Emergency Department if you should have any new, worsening or concerning symptoms, such as [fever greater than 101 F, shaking chills, worsening pain, persistent vomiting or other bothersome symptoms] Prescriptions: No Action azithromycin 250 mg tablet See Rx Instructions PO .COMPLEX Qty: 6 RF: 0 benzonatate [Tessalon Perles] 100 mg capsule 100 mg PO BID PRN (Reason: cough) Qty: 14 RF: 0 ketorolac 10 mg tablet 10 mg PO TID PRN (Reason: pain) Qty: 14 RF: 0 Referrals: Maite Pierce DO [Primary Care Provider] -
--- NOTE | 2020-09-25 21:00 | DI.CT.S_ITS ---
PROCEDURE: CT HEAD/BRAIN WO CON INDICATIONS: dizzy, lightheaded and facial tingling, sent by her neurology TECHNIQUE: Noncontrast 4.5 mm thick angled axial sections acquired from the foramen magnum to the vertex, with coronal and sagittal reformats. For radiation dose reduction, the following was used: automated exposure control, adjustment of mA and/or kV according to patient size. COMPARISON: None. FINDINGS: Image quality: Excellent. CSF spaces: Basal cisterns are patent. No extra-axial fluid collections. Ventricles are normal in size and shape. Brain: No midline shift. No intracranial masses or hemorrhage. Murray-white matter interface is normal. Skull and face: Calvarium and visualized facial bones are intact, without suspicious lesions. Sinuses: There is an air-fluid level in the right maxillary sinus. Mastoids are clear. IMPRESSION: 1. No acute intracranial abnormalities. 2. Right maxillary sinus disease. Dictated by: Sherine Vaughan M.D. on 09/25/2020 at 21:52 Approved by: Sherine Vaughan M.D. on 09/25/2020 at 21:53
== END 2020-09-25 22:34 | disposition home or self-care (01) ==
PROVIDERS: Emergency Medicine; Emergency Provider Emergency Medicine; PCP Family Medicine
DX: R20.0 Anesthesia of skin (principal); R42 Dizziness and giddiness; R41.82 Altered mental status, unspecified
CPT/HCPCS: 70450; 80053; 85025; 93005; 93010; 99283; 99284

== ENCOUNTER 2020-12-29 07:23 | Emergency (ER) | payer OTHER, SELFPAY ==
[2020-12-29] VITALS (11 sets, daily range): BP systolic 132–181; BP diastolic 65–89; PULSE 55–66; RESP 15–22; TEMP 36.6; O2SAT 96–98; BMI 36.5
--- NOTE | 2020-12-29 08:11 | ED_ITS ---
HPI - General Adult General Chief complaint: Hypertension Stated complaint: Extremely high BP, sent by [facility] Time Seen by Provider: 12/29/20 08:05 Source: patient Mode of arrival: Ambulatory Limitations: no limitations History of Present Illness HPI narrative: Patient is a 60-year-old female with history of diabetes hiatal hernia hypertension hyperlipidemia presenting today with elevated blood pressure and headache. She did this morning she woke up with a slight headache on the right side and her legs bilaterally felt weak. She is able to walk she has no numbness tingling or unilateral weakness. No visual changes or speech changes. She does have chest discomfort which she says is from her a hiatal hernia. She says this is not changed she has had it for number of years it is nonradiating. She has no known history of coronary artery disease. She denies any shortness of breath. She has some mild nausea but no vomiting. She denies any abdominal pain. Related Data Previous Rx's Medication Instructions Recorded azithromycin 250 mg tablet See Rx Instructions PO .COMPLEX #6 09/09/18 tab benzonatate 100 mg capsule 100 mg PO BID PRN #14 cap 09/09/18 (Tesadan Marcano) ketorolac 10 mg tablet 10 mg PO TID PRN #14 tab 02/10/20 Allergies Allergy/AdvReac Type Severity Reaction Status Date / Time loracarbef [From LORABID] Allergy Unknown Verified 12/29/20 07:51 loratadine [From CLARITIN] Allergy Unknown Verified 12/29/20 07:51 meperidine [From DEMEROL] Allergy Unknown Verified 12/29/20 07:51 Review of Systems Review of Systems Narrative: GENERAL: Denies chills, fatigue, malaise, fever, sweats, travel HEENT: Denies sinus pain, ear pain, sore throat, difficulty swallowing, neck pain RESPIRATORY: Denies dyspnea, cough, wheezing, hemoptysis, sputum. CARDIOVASCULAR:+ chest pain, see HPI GASTROINTESTINAL: Denies nausea, vomiting, abdominal pain, diarrhea, constipation, melena. : Denies dysuria, frequency, incontinence, hematuria, urinary retention, flank pain. MUSCULOSKELETAL: Denies weakness, joint pain, or bony pain SKIN: No rash, no erythema, no pruritus NEUROLOGIC: + headache, see HPI PSYCHIATRIC: No concerning psychosocial issues. 12 point review of systems is negative except for those stated above and HPI Patient History Social History household members: significant other Smoking Status: Former smoker Smoking Status: Former smoker alcohol intake frequency: 0-2 drinks per day Substance Use Type: marijuana Exam Initial Vital Signs Initial Vital Signs: Vital Signs Pulse Oximetry 98 12/29/20 07:42 GENERAL: Alert well-appearing 60-year-old femaleand in no acute distress. HEENT: Head atraumatic,EOMI, pupils reactive, face symmetric, moist mucous membranes , neck is supple no meningeal signs CARDIOVASCULAR: Regular rate and rhythm without murmurs, rubs or gallops. RESPIRATORY: Breath sounds equal bilaterally, no wheezes rales or rhonchi. ABDOMEN: Soft, nontender. Normoactive bowel sounds all 4 quadrants. No guarding or rebound. EXTREMITIES: Normal range of motion, no clubbing or edema. Neurovascularly intact NEUROLOGICAL: Alert and oriented x4.Normal gait and speech. Cranial nerves II through XII grossly intact. Good [id number], good [id number], strength equal bilaterally, no dysarthria or aphasia, sensation in tact to soft touch bilaterally, no visual changes, no facial droop SKIN: Warm, dry, no laceration, no petechiae, no rashes or lesions. Course Orders Ordered: ED Orders 12/29/20 07:43 EKG-12 Lead Routine 12/29/20 08:02 Complete Blood Count AUTO DIFF Stat Comprehensive Metabolic Panel Stat Lipase Stat Troponin & CK Cardiac Panel Stat 12/29/20 08:18 CT head/brain wo con Stat XR chest 1V Stat 12/29/20 10:05 Troponin I Stat 12/29/20 10:07 EKG-12 Lead Routine Vital Signs Vital signs: Vital Signs - 8 hr 12/29/20 07:51 12/29/20 08:00 12/29/20 08:02 Temperature 97.9 F Pulse Rate 63 60 60 Respiratory Rate 15 17 15 Blood Pressure 181/89 H 175/72 H Pulse Oximetry 98 97 96 12/29/20 08:31 12/29/20 08:32 12/29/20 09:00 Temperature Pulse Rate 57 L 56 L 61 Respiratory Rate 22 16 21 Blood Pressure 161/77 H 132/74 Pulse Oximetry 98 97 97 12/29/20 09:30 12/29/20 10:00 10/18/21 10:30 Temperature Pulse Rate 59 L 63 55 L Respiratory Rate 16 17 17 Blood Pressure 151/70 H 155/73 H 140/65 Pulse Oximetry 96 97 98 Medical Decision Making Lab Data Result diagrams: 12/29/20 08:02 12/29/20 08:02 Labs: Lab Results 12/29/20 12/29/20 12/29/20 Range/Units 08:02 08:02 10:05 WBC 6.5 (4.5-11.0) X10^3/uL RBC 4.24 (4.0-5.2) X10^6/uL Hgb 13.7 (12.0-16.0) g/dL Hct 40.9 (36-46) % MCV 96.5 (80-100) fL MCH 32.3 (26-34) PG MCHC 33.5 (30-36) % RDW 12.8 (11.6-14.8) % Plt Count 212 (150-400) X10^3/uL Neut % (Auto) 67.7 (50-75) % Lymph % (Auto) 22.0 L (25-40) % [place] % (Auto) 7.2 (3-14) % Eos % (Auto) 2.1 (2-4) % Baso % (Auto) 1.0 (0-2) % Neut # (Auto) 4400 (9265-6998) /uL Lymph # (Auto) 1400 (4760-9906) /uL [place] # (Auto) 500 (0-900) /uL Eos # (Auto) 100 (0-450) /uL Baso # (Auto) 100 (0-100) /uL Sodium 140 (137-145) mmol/L Potassium 4.1 (3.4-5.1) mmol/L Chloride 105 (98-107) mmol/L Carbon Dioxide 29 (22-32) mmol/L BUN 13 (7-17) mg/dL Creatinine 0.69 (0.52-1.04) mg/dL Estimated GFR > 60.0 (>60) mL/min BUN/Creatinine Ratio 18.8 (6-22) Glucose 166 H (80-110) mg/dL Calcium 9.0 (8.4-10.2) mg/dL Total Bilirubin 0.6 (0.2-1.3) mg/dL AST 24 (14-36) IU/L ALT 17 (<35) IU/L Alkaline Phosphatase 90 (38-126) U/L Total Creatine Kinase 74 (30-135) U/L CK-MB (CK-2) TNP CK-MB (CK-2) Rel Index TNP Troponin I < 0.012 < 0.012 (0.01-0.034) ng/mL Total Protein 6.8 (6.3-8.2) g/dL Albumin 4.1 (3.5-5.0) g/dL Globulin 2.7 (1.7-4.1) g/dL Albumin/Globulin Ratio 1.5 (1.0-2.8) Lipase 91 (23-300) U/L Imaging Data CT scan - head: Radiologist's Impression: PROCEDURE:? CT HEAD/BRAIN WO CON ? INDICATIONS:? headache and HTN ? TECHNIQUE:? Noncontrast 4.5 mm thick angled axial sections acquired from the foramen magnum to the vertex, with coronal and sagittal reformats.? For radiation dose reduction, the following was used:? automated exposure control, adjustment of mA and/or kV according to patient size.? ? COMPARISON:? [facility], CT, CT HEAD/BRAIN WO CON, 09/25/2020, 21:09. ? FINDINGS:? Image quality:? Excellent.? ? CSF spaces:? Basal cisterns are patent.? No extra-axial fluid collections.? The ventricles are symmetric in size and shape.? ? Brain:? No acute intracranial hemorrhage or mass effect.? Murray-white matter differentiation is maintained.? There is intracranial internal carotid artery and vertebral artery atherosclerosis.? ? Skull and face:? Calvarium and visualized facial bones appear intact, without suspicious lesions.? ? Sinuses:? Postsurgical changes are seen at the right ethmoid air cells.? Mild mucosal thickening is seen in the frontal and maxillary sinuses and the ethmoid air cells bilaterally.? A tiny air-fluid level is seen in the posterior right maxillary sinus.? ? IMPRESSION:? 1. No acute intracranial abnormality. 2. Mild paranasal sinus disease. ? ? Dictated by: Lenny Cook M.D. on 12/29/2020 at 8:33 ? ? Chest x-ray: Radiologist's Impression: PROCEDURE:? XR CHEST 1V ? INDICATIONS:? chest pain ? TECHNIQUE:? One view of the chest was acquired.? ? COMPARISON:? [facility], CR, XR CHEST 1V, 02/10/2020, 12:15. ? FINDINGS:? ? Surgical changes and devices:? Postsurgical widening of the left acromioclavicular joint. ? ? Lungs and pleura:? Lungs are clear.? No pleural effusions or pneumothorax.? ? Mediastinum:? Mediastinal contours appear normal.? Heart size is normal.? ? Bones and chest wall:? No suspicious bony lesions.? Overlying soft tissues appear unremarkable.? ? IMPRESSION:? No acute cardiopulmonary abnormality. ? ? Dictated by: Lenny Cook M.D. on 12/29/2020 at 8:37 ? ? Approved by: Lenny Cook M.D. on 12/29/2020 at 8:37 ? ECG Data Interpretation: EKG 1. Sinus rhythm rate 61 ND interval 180 QRS 92 QTC 418 T- wave inversion noted in lead 3 and AVF with Q-waves no ST elevations or depress ions similar to all previous EKG EKG 2. Sinus rhythm rate 54 ND interval 202 persistent T-wave inversions without ST elevation MDM Narrative Medical decision making narrative: Patient blood pressure of has improved without any intervention. Head CT is negative she has no focal deficits. Complaining of some numbness tingling on her scalp. His she has 2- troponins and stable EKGs she states her chest discomfort is likely her hiatal hernia remains unchanged today. Her biggest concern was stroke which she does not appear to. At this time this is not the worst headache of her life initial head CT is negative I do not feel this is subarachnoid related. At this time I recommend she monitor blood pressure on follow-up with PCP Discharge Plan Departure Patient Disposition: Home Clinical Impression: Hypertension Instructions: DI for High Blood Pressure Activity Restrictions/Additional Instructions: *You have been diagnosed with hypertension *What to do: At this time I recommend the taking her blood pressure daily, same time every day and recording. Please discuss with her primary care provider in regards to your blood pressure medications *Continue to take medications as directed *Follow up with your primary care provider in 2-3 days *Return to ER if you should have increasing headache, weakness, difficulty speaking, difficulty walking, visual changes, worsening chest pain, shortness of breath, blood pressure elevated over 185 consistently or any new, worsening or concerning symptoms Prescriptions: No Action azithromycin 250 mg tablet See Rx Instructions PO .COMPLEX Qty: 6 RF: 0 benzonatate [Tessalon Perles] 100 mg capsule 100 mg PO BID PRN (Reason: cough) Qty: 14 RF: 0 ketorolac 10 mg tablet 10 mg PO TID PRN (Reason: pain) Qty: 14 RF: 0 Referrals: Maite Pierce DO [Primary Care Provider] -
--- NOTE | 2020-12-29 08:18 | DI.RAD.S_ITS ---
PROCEDURE: XR CHEST 1V INDICATIONS: chest pain TECHNIQUE: One view of the chest was acquired. COMPARISON: [facility], , XR CHEST 1V, 02/10/2020, 12:15. FINDINGS: Surgical changes and devices: Postsurgical widening of the left acromioclavicular joint. Lungs and pleura: Lungs are clear. No pleural effusions or pneumothorax. Mediastinum: Mediastinal contours appear normal. Heart size is normal. Bones and chest wall: No suspicious bony lesions. Overlying soft tissues appear unremarkable. IMPRESSION: No acute cardiopulmonary abnormality. Dictated by: Lenny Cook M.D. on 12/29/2020 at 8:37 Approved by: Lenny Cook M.D. on 12/29/2020 at 8:37
--- NOTE | 2020-12-29 08:18 | DI.CT.S_ITS ---
PROCEDURE: CT HEAD/BRAIN WO CON INDICATIONS: headache and HTN TECHNIQUE: Noncontrast 4.5 mm thick angled axial sections acquired from the foramen magnum to the vertex, with coronal and sagittal reformats. For radiation dose reduction, the following was used: automated exposure control, adjustment of mA and/or kV according to patient size. COMPARISON: [facility], CT, CT HEAD/BRAIN WO CON, 09/25/2020, 21:09. FINDINGS: Image quality: Excellent. CSF spaces: Basal cisterns are patent. No extra-axial fluid collections. The ventricles are symmetric in size and shape. Brain: No acute intracranial hemorrhage or mass effect. Murray-white matter differentiation is maintained. There is intracranial internal carotid artery and vertebral artery atherosclerosis. Skull and face: Calvarium and visualized facial bones appear intact, without suspicious lesions. Sinuses: Postsurgical changes are seen at the right ethmoid air cells. Mild mucosal thickening is seen in the frontal and maxillary sinuses and the ethmoid air cells bilaterally. A tiny air-fluid level is seen in the posterior right maxillary sinus. IMPRESSION: 1. No acute intracranial abnormality. 2. Mild paranasal sinus disease. Dictated by: Lenny Cook M.D. on 12/29/2020 at 8:33 Approved by: Lenny Cook M.D. on 12/29/2020 at 8:37
[2020-12-29 08:25] LABS: Add Manual Diff / Slide Review NO; Basophils Absolute Auto 100 /uL (0-100); Eosinophils Absolute Auto 100 /uL (0-450); Eosinophils Percent Auto 2.1 % (2-4); Hematocrit 40.9 % (36-46); Hemoglobin 13.7 g/dL (12.0-16.0); Lymphocytes Absolute Auto 1400 /uL (1100-4500); Mean Corpuscular HGB Conc 33.5 % (30-36); Mean Corpuscular Hemoglobin 32.3 PG (26-34); Mean Corpuscular Volume 96.5 fL (80-100); Monocytes Absolute Auto 500 /uL (0-900); Monocytes Percent Auto 7.2 % (3-14); Neutrophils Absolute Auto 4400 /uL (1500-7000); Neutrophils Percent Auto 67.7 % (50-75); Platelet Count 212 X10^3/uL (150-400); Red Blood Cell Count 4.24 X10^6/uL (4.0-5.2); Red Cell Distribution Width 12.8 % (11.6-14.8); White Blood Cell Count 6.5 X10^3/uL (4.5-11.0)
[2020-12-29 08:30] LABS: Alanine Aminotransferase 17 IU/L (<35); Albumin 4.1 g/dL (3.5-5.0); Albumin Globulin Ratio 1.5 (1.0-2.8); Alkaline Phosphatase 90 U/L (38-126); Aspartate Aminotransferase 24 IU/L (14-36); BUN Creatinine Ratio 18.8 (6-22); Bilirubin Total 0.6 mg/dL (0.2-1.3); Blood Urea Nitrogen 13 mg/dL (7-17); Carbon Dioxide 29 mmol/L (22-32); Chloride 105 mmol/L (98-107); Creatine Kinase 74 U/L (30-135); Estimated Glomerular Filt Rate > 60.0 mL/min (>60); Globulin 2.7 g/dL (1.7-4.1); Glucose 166 mg/dL (80-110); HEMOLYSIS < 15 (0-50); Lipase 91 U/L (23-300); Potassium 4.1 mmol/L (3.4-5.1); Sodium 140 mmol/L (137-145); Total Protein 6.8 g/dL (6.3-8.2)
[2020-12-29 08:41] LABS: Troponin I < 0.012 ng/mL (0.01-0.034)
[2020-12-29 10:33] LABS: Troponin I < 0.012 ng/mL (0.01-0.034)
== END 2020-12-29 11:06 | disposition home or self-care (01) ==
PROVIDERS: Emergency Provider Emergency Medicine; PCP Family Medicine
DX: I10 Essential (primary) hypertension (principal); R07.9 Chest pain, unspecified; R51.9 Headache, unspecified; Z87.891 Personal history of nicotine dependence
CPT/HCPCS: 36415; 70450; 71045; 80053; 82550; 83690; 84484; 85025; 93005; 93010; 99283; 99284

== ENCOUNTER → 2021-02-22 09:48 | Outpatient (CLI) | payer OTHER, SELFPAY ==
[2021-02-22 10:10] LABS: COVID19 -Nasal RAPID POSITIVE (Negative)
== END ==
PROVIDERS: PCP Family Medicine; Visit Provider Nurse Practitioner Family
DX: Z20.822 Contact with and (suspected) exposure to COVID-19 (principal)
CPT/HCPCS: 87635

== ENCOUNTER → 2022-03-26 10:47 | Outpatient (CLI) | payer OTHER, SELFPAY ==
[2022-03-26 13:40] LABS: Influenza A - CEPHEID Flu A NEGATIVE (NEGATIVE); Influenza B - CEPHEID Flu B NEGATIVE (NEGATIVE); Respiratory Syncytial Virus Negative (Negative)
[2022-03-26 13:52] LABS: COVID-19 CEPHEID 4-PLEX PCR Negative (Negative)
== END ==
PROVIDERS: PCP Family Medicine; Visit Provider Registered Nurse
DX: J06.9 Acute upper respiratory infection, unspecified (principal); Z20.822 Contact with and (suspected) exposure to COVID-19
CPT/HCPCS: 0241U

== ENCOUNTER → 2022-06-30 18:39 | Outpatient (CLI) | payer OTHER, SELFPAY ==
--- NOTE | 2022-06-30 | DI.MRI.S_ITS ---
PROCEDURE: MR LUMBAR SPINE WO CON INDICATIONS: Radiculopathy, lumbar region TECHNIQUE: Noncontrast sagittal T1 spin echo and T2 fast echo, sagittal STIR, and T2 fast spin echo through the lumbar spine. In cases with scoliosis, additional coronal T2 fast spin echo may be performed. COMPARISON: [facility], CR, XR LUMBAR SPINE WITH OBLIQUES PLUS FLEXION EXTENSION, 02/22/2022, 14:00. FINDINGS: Image quality: Excellent. Alignment and Curvature: There is trace anterolisthesis of L5 on S1. Bone Marrow: Marrow is of normal overall signal. Focus of increased T1 and T2 signal is present at L2 most suggestive of hemangioma. No acute vertebral body compression fractures. Spinal Cord: Conus medullaris terminates at the L2 level. Visualized cord demonstrates normal signal and size. Paraspinous Soft Tissues: No paravertebral masses. Discs: Minimal desiccation is present at L5-S1. T12-L1: No disc bulge, spinal stenosis or foraminal narrowing. L1-L2: No disc bulge, spinal stenosis or foraminal narrowing. L2-L3: No disc bulge, spinal stenosis or foraminal narrowing. L3-L4: Minimal disc bulge without spinal stenosis or foraminal narrowing. Mild epidural lipomatosis. Minimal facet hypertrophy. L4-L5: Mild disc bulge with mild spinal stenosis. Mild bilateral foraminal narrowing with facet and ligamentum flavum hypertrophy. Minimal epidural lipomatosis. L5-S1: Mild disc bulge without spinal stenosis. [id number] right foraminal narrowing with facet hypertrophy. IMPRESSION: Early degenerative changes most notable at L5-S1 demonstrate [id number] foraminal narrowing secondary to facet arthropathy. Dictated by: Lluvia Rivera M.D. on 07/01/2022 at 13:27 Approved by: Lluvia Rivera M.D. on 07/01/2022 at 13:30
== END ==
PROVIDERS: PCP Family Medicine; Referring Provider Family Medicine; Visit Provider Family Medicine
DX: M47.27 Other spondylosis with radiculopathy, lumbosacral region (principal); M48.07 Spinal stenosis, lumbosacral region
CPT/HCPCS: 72148

== ENCOUNTER 2022-11-18 02:47 | Observation (INO) | payer OTHER, SELFPAY ==
[2022-11-18] VITALS (20 sets, daily range): BP systolic 110–216; BP diastolic 56–96; PULSE 54–88; RESP 12–20; TEMP 36.2–36.8; O2SAT 92–98; BMI 36.8
--- NOTE | 2022-11-18 02:54 | DI.RAD.S_ITS ---
PROCEDURE: XR CHEST 1V INDICATIONS: chest pain TECHNIQUE: One view of the chest was acquired. COMPARISON: [facility], , XR CHEST 1V, 12/29/2020, 8:18. FINDINGS: Surgical changes and devices: None. Lungs and pleura: Lungs are clear. No pleural effusions or pneumothorax. Mediastinum: Mediastinal contours appear normal. Heart size is normal. Bones and chest wall: No suspicious bony lesions. Overlying soft tissues appear unremarkable. IMPRESSION: Portable chest within normal limits for age. These findings are concordant with the overnight interpretation. Dictated by: Lisa Elena M.D. on 11/18/2022 at 8:14 Approved by: Lisa Elena M.D. on 11/18/2022 at 8:14
--- NOTE | 2022-11-18 02:56 | ED.CHESTPAIN ---
HPI - Chest Pain General Chief Complaint: Chest Pain Stated Complaint: chest pain Time Seen by Provider: 11/18/22 02:54 History of Present Illness HPI narrative: Patient is a 61-year-old female with history of diabetes, hiatal hernia, hyperlipidemia, hypertension presenting today with chest discomfort. She reports that over the last week she is had a dull ache in her jaw not associated with chewing tonight she awoke from sleep with chest pressure in her her chest radiating up to her shoulder. She feels slightly nauseous no sweating or shortness of breath. Over the last week she is not associated any jaw pain with activity. She is noted to be quite hypertensive in the ED Related Data Home Medications Medication Instructions Recorded Confirmed atenolol 25 mg tablet 25 mg PO DAILY 02/22/21 09/06/22 Previous Rx's Medication Instructions Recorded benzonatate 100 mg capsule 100 mg PO BID PRN cough #14 caps 09/09/18 (Kaley Marcano) ketorolac 10 mg tablet 10 mg PO TID PRN pain #14 tabs 02/10/20 Allergies Allergy/AdvReac Type Severity Reaction Status Date / Time loracarbef [From LORABID] Allergy Unknown Verified 09/06/22 12:13 loratadine [From CLARITIN] Allergy Unknown Verified 09/06/22 12:13 meperidine [From DEMEROL] Allergy Unknown Verified 09/06/22 12:13 Review of Systems Review of Systems ROS Unobtainable: All systems reviewed & are unremarkable except as noted in HPI and below Patient History Social History household members: significant other Smoking Status: Former smoker Smoking Status: Former smoker alcohol intake frequency: 0-2 drinks per day Substance Use Type: marijuana Exam Initial Vital Signs Initial Vital Signs: Vital Signs Temperature 97.1 F L 11/18/22 02:51 Pulse Rate 78 11/18/22 02:51 Respiratory Rate 20 11/18/22 02:51 Blood Pressure 216/96 H 11/18/22 02:51 Pulse Oximetry 98 11/18/22 02:51 Oxygen Delivery Method Room Air 11/18/22 02:51 GENERAL: Alert well-appearing 61-year-old female and in no acute distress. HEENT: Head atraumatic,EOMI, pupils reactive, face symmetric, moist mucous membranes CARDIOVASCULAR: Regular rate and rhythm without murmurs, rubs or gallops. RESPIRATORY: Breath sounds equal bilaterally, no wheezes rales or rhonchi. ABDOMEN: Soft, nontender. Normoactive bowel sounds all 4 quadrants. No guarding or rebound. Negative David's EXTREMITIES: Normal range of motion, no clubbing or edema. Neurovascularly intact NEUROLOGICAL: Alert and oriented x4.Normal gait and speech. SKIN: Warm, dry, no laceration, no petechiae, no rashes or lesions. Scores HEART Score Heart Score history: Moderately Suspicious Heart Score EKG: Normal Heart Score Age: 45-64 years old Heart Score risk factors: > 3 risk factors or hx of atherosclerotic disease Heart Score troponin: < or = to normal limit Heart Score Total: 4 Course Orders Ordered: ED Orders 11/18/22 02:54 XR chest 1V Stat EKG-12 Lead Stat 11/18/22 02:55 Complete Blood Count AUTO DIFF Stat Comprehensive Metabolic Panel Stat Lipase Stat Troponin & CK Cardiac Panel Stat 11/18/22 03:54 CT angio chest PE protocol Stat 11/18/22 05:00 Trop I [Troponin I] Stat Acetaminophen (Acetaminophen 325 Mg Tablet) 650 mg PO Q6H KRISTIAN Al Hydrox/Mg Hydrox/Simethicone (Mag Hydrox/Alum/Simeth 30 Ml Udc) 30 ml PO Q6HR PRN PRN Reason: Dyspepsia Amlodipine Besylate (Amlodipine 5 Mg Tablet) 5 mg PO DAILY KRISTIAN Atorvastatin Calcium (Atorvastatin 20 Mg Tablet) 20 mg PO BEDTIME KRISTIAN Dextrose (Dextrose 50 % In Water 25 Gm/50 Ml Syringe) 25 gm IV PRN PRN; Protocol PRN Reason: Hypoglycemia Dextrose (Dextrose 50 % In Water 25 Gm/50 Ml Syringe) 25 gm IV PRN PRN; Protocol PRN Reason: Hypoglycemia Fluticasone Propionate (Fluticasone 120 [place]/16 Gm [place].Susp) 1 spray NASAL DAILY KRISTIAN Hyoscyamine (Hyoscyamine 0.125 Mg Tablet) 0.25 mg PO Q4HR PRN PRN Reason: Cramping Insulin Human Lispro (Insulin Lispro 100 Unit/Ml 3ml Vial) 20 unit SUBCUT QACBREAK [facility] Insulin Human Lispro (Insulin Lispro 100 Unit/Ml 3ml Vial) 22 unit SUBCUT QACDINNER [facility] Metoprolol Tartrate (Metoprolol Ir 25 Mg Tablet) 12.5 mg PO BID [facility] Naloxone HCl (Naloxone 0.4 Mg/Ml Vial) 0.2 mg IV Q2MIN PRN PRN Reason: Opiate Reversal Ondansetron HCl (Ondansetron 4 Mg/2 Ml Inj) 4 mg IV Q8HR PRN PRN Reason: Nausea And Vomiting Pantoprazole Sodium (Pantoprazole Dr 40 Mg Tablet) 40 mg PO 0700,2100 [facility] Discontinued Medications Aspirin (Aspirin 81 Mg Chew Tab) 324 mg PO NOW ONE Stop: 11/18/22 02:55 Last Admin: 11/18/22 02:59 Dose: 324 mg Nitroglycerin (Nitroglycerin 0.4 Mg Sl Tab) 0.4 mg SL [id number] PRN PRN Reason: Chest Pain Last Admin: 11/18/22 03:12 Dose: 0.4 mg Ondansetron HCl (Ondansetron 4 Mg/2 Ml Inj) 4 mg IV NOW ONE Stop: 11/18/22 03:14 Last Admin: 11/18/22 03:16 Dose: 4 mg Pantoprazole Sodium (Pantoprazole 40 Mg Vial) 40 mg IV NOW ONE Stop: 11/18/22 03:14 Last Admin: 11/18/22 03:16 Dose: 40 mg Vital Signs Vital signs: Vital Signs - 8 hr 11/18/22 02:51 11/18/22 02:59 11/18/22 02:51 Temperature 97.1 F L Pulse Rate 78 74 88 Respiratory Rate 20 Blood Pressure 216/96 H 216/96 H Pulse Oximetry 98 97 Oxygen Delivery Method Room Air 11/18/22 03:00 11/18/22 03:00 11/18/22 03:07 Temperature Pulse Rate 77 72 Respiratory Rate 13 14 Blood Pressure 144/74 H Pulse Oximetry 98 96 Oxygen Delivery Method 11/18/22 03:07 11/18/22 03:12 11/18/22 03:12 Temperature Pulse Rate 78 Respiratory Rate 12 Blood Pressure 134/74 132/65 Pulse Oximetry 95 Oxygen Delivery Method 11/18/22 03:30 11/18/22 03:30 11/18/22 04:00 Temperature Pulse Rate 64 Respiratory Rate Blood Pressure 121/57 L 110/56 L Pulse Oximetry 92 Oxygen Delivery Method 11/18/22 04:00 11/18/22 04:30 11/18/22 04:44 Temperature Pulse Rate 59 L 54 L Respiratory Rate 12 16 Blood Pressure 110/58 L Pulse Oximetry 93 94 Oxygen Delivery Method 11/18/22 04:44 11/18/22 05:00 11/18/22 05:02 Temperature Pulse Rate 58 L 56 L 56 L Respiratory Rate 20 16 15 Blood Pressure Pulse Oximetry 97 96 97 Oxygen Delivery Method 11/18/22 05:02 11/18/22 05:30 11/18/22 05:38 Temperature Pulse Rate 67 63 Respiratory Rate 15 18 Blood Pressure 113/56 L Pulse Oximetry 93 96 Oxygen Delivery Method 11/18/22 05:38 Temperature Pulse Rate Respiratory Rate Blood Pressure 144/64 H Pulse Oximetry Oxygen Delivery Method MDM - Chest Pain Lab Data 11/18/22 02:55 11/18/22 02:55 Labs: Lab Results 11/18/22 11/18/22 11/18/22 Range/Units 02:55 02:55 05:00 WBC 9.1 (4.5-11.0) X10^3/uL RBC 4.54 (4.0-5.2) X10^6/uL Hgb 14.5 (12.0-16.0) g/dL Hct 42.6 (36-46) % MCV 93.7 (80-100) fL MCH 32.0 (26-34) PG MCHC 34.1 (30-36) % RDW 12.8 (11.6-14.8) % Plt Count 246 (150-400) X10^3/uL Neut % (Auto) 54.0 (50-75) % Lymph % (Auto) 36.0 (25-40) % [place] % (Auto) 6.7 (3-14) % Eos % (Auto) 2.3 (2-4) % Baso % (Auto) 1.0 (0-2) % Neut # (Auto) 4900 (1731-3771) /uL Lymph # (Auto) 3300 (6948-7004) /uL [place] # (Auto) 600 (0-900) /uL Eos # (Auto) 200 (0-450) /uL Baso # (Auto) 100 (0-100) /uL Sodium 140 (137-145) mmol/L Potassium 3.8 (3.4-5.1) mmol/L Chloride 104 (98-107) mmol/L Carbon Dioxide 27 (22-32) mmol/L BUN 9 (7-17) mg/dL Creatinine 0.77 (0.52-1.04) mg/dL Estimated GFR > 60 (>60) mL/min BUN/Creatinine Ratio 11.7 (6-22) Glucose 113 H (80-110) mg/dL Calcium 9.2 (8.4-10.2) mg/dL Total Bilirubin 0.5 (0.2-1.3) mg/dL AST 24 (14-36) IU/L ALT 18 (<35) IU/L Alkaline Phosphatase 100 (38-126) U/L Total Creatine Kinase 46 (30-135) U/L Troponin I < 0.012 < 0.012 (0.01-0.034) ng/mL Total Protein 7.3 (6.3-8.2) g/dL Albumin 4.1 (3.5-5.0) g/dL Globulin 3.2 (1.7-4.1) g/dL Albumin/Globulin Ratio 1.3 (1.0-2.8) Lipase 130 (23-300) U/L Imaging Data CT scan - chest: Radiologist's Impression: Preliminary report no who abnormality identified. No evidence of pulmonary embolus. Moderate enlargement of the pulmonary trunk possibly due to pulmonary arterial hypertension. Chest x-ray: Radiologist's Impression: No active cardiopulmonary disease ECG Data Interpretation: EKG 1. Normal sinus rhythm rate 73 [place] interval 182 QRS 82 QTC 423 persistent T-wave inversions noted in lead [address] changes similar to previous EKG in 2020 EKG 2. Sinus rhythm rate 55 [place] interval 194 QRS 86 QTC 422 no changes from prior MDM Narrative Medical decision making narrative: Patient 61-year-old female is history of type 2 diabetes hypertension hyperlipidemia presenting today with chest discomfort. She reports having jaw pain for 1 week not associated with chewing or dental presents today with sudden onset of chest tightness waking her from her sleep. She felt nauseous radiating to her left shoulder she received 3 nitroglycerin in the ED which did bring her discomfort down. Sometimes it does seem like it is reproducible however she still feels some slight pressure in her chest. Symptoms are certainly concerning for acute coronary syndrome. Blood work has been reviewed 2 negative troponins no evidence of KIZZY or other abnormality. Chest x-ray is negative CT chest was done to assess hiatal hernia no mention of hiatal hernia in report and I do not see 1 myself. Unlikely that the hiatal hernia is causing her discomfort. Patient has a heart score of 4 moderate risk. She is quite active and able to walk. She is been given nitroglycerin and aspirin and Protonix which have definitely helped her pain she is overall much more comfortable blood pressure has improved. Dr. Peterson accepts to observation Discharge Plan Departure Patient Disposition: Admitted as Observation Clinical Impression: Chest pain Admit Date/Time: 11/18/22 05:50 Admit Provider: Ciara Peterson
[2022-11-18] MEDS: ASPIRIN 81 MG CHEW TAB 324 MG PO (02:59)
[2022-11-18] MEDS: NITROGLYCERIN 0.4 MG SL TAB SL ×3 (02:59→03:12)
[2022-11-18 03:09] LABS: Add Manual Diff / Slide Review NO; Basophils Absolute Auto 100 /uL (0-100); Eosinophils Absolute Auto 200 /uL (0-450); Eosinophils Percent Auto 2.3 % (2-4); Hematocrit 42.6 % (36-46); Hemoglobin 14.5 g/dL (12.0-16.0); Lymphocytes Absolute Auto 3300 /uL (1100-4500); Mean Corpuscular HGB Conc 34.1 % (30-36); Mean Corpuscular Volume 93.7 fL (80-100); Monocytes Absolute Auto 600 /uL (0-900); Monocytes Percent Auto 6.7 % (3-14); Neutrophils Absolute Auto 4900 /uL (1500-7000); Platelet Count 246 X10^3/uL (150-400); Red Blood Cell Count 4.54 X10^6/uL (4.0-5.2); Red Cell Distribution Width 12.8 % (11.6-14.8); White Blood Cell Count 9.1 X10^3/uL (4.5-11.0)
[2022-11-18] MEDS: ONDANSETRON 4 MG/2 ML INJ IV (03:16)
[2022-11-18] MEDS: PANTOPRAZOLE 40 MG VIAL IV (03:16)
[2022-11-18 03:18] LABS: Alanine Aminotransferase 18 IU/L (<35); Albumin 4.1 g/dL (3.5-5.0); Albumin Globulin Ratio 1.3 (1.0-2.8); Alkaline Phosphatase 100 U/L (38-126); Aspartate Aminotransferase 24 IU/L (14-36); BUN Creatinine Ratio 11.7 (6-22); Bilirubin Total 0.5 mg/dL (0.2-1.3); Blood Urea Nitrogen 9 mg/dL (7-17); Calcium 9.2 mg/dL (8.4-10.2); Carbon Dioxide 27 mmol/L (22-32); Chloride 104 mmol/L (98-107); Creatine Kinase 46 U/L (30-135); Estimated Glomerular Filt Rate > 60 mL/min (>60); Globulin 3.2 g/dL (1.7-4.1); Glucose 113 mg/dL (80-110); HEMOLYSIS 15 (0-50); Lipase 130 U/L (23-300); Potassium 3.8 mmol/L (3.4-5.1); Sodium 140 mmol/L (137-145); Total Protein 7.3 g/dL (6.3-8.2)
[2022-11-18 03:29] LABS: Troponin I < 0.012 ng/mL (0.01-0.034)
--- NOTE | 2022-11-18 03:54 | DI.CT.S_ITS ---
PROCEDURE: CT ANGIO CHEST PE PROTOCOL INDICATIONS: chest pain hiatal hernia TECHNIQUE: After the administration of intravenous contrast, 2 mm thick sections acquired from the pulmonary apices to the posterior costophrenic angles. 3-dimensional maximum intensity projection (MIP) coronal and sagittal reformats were then acquired through the thorax. For radiation dose reduction, the following was used: automated exposure control, adjustment of mA and/or kV according to patient size. COMPARISON: None. FINDINGS: Image quality: Excellent. Pulmonary arteries: Pulmonary arteries are normal in size, and demonstrate no intraluminal filling defects to suggest central pulmonary embolism. Lungs and pleura: Lungs are clear. No pleural effusions or pneumothorax. Central and peripheral airways are patent. Mediastinum: Heart size is normal, without pericardial effusion. No mediastinal or hilar adenopathy. Thoracic aorta is normal in caliber and enhancement. Esophagus is normal in caliber, without hiatal hernia. Bones and chest wall: No suspicious bony lesions. Ribs and thoracic spine appear intact throughout. Thyroid gland is unremarkable. No axillary or supraclavicular adenopathy. Abdomen: Visualized upper abdominal solid organs appear normal in the early arterial phase of enhancement. IMPRESSION: 1. No acute pulmonary embolus. 2. No acute airspace opacities. These findings are concordant with the overnight interpretation. Dictated by: Lisa Elena M.D. on 11/18/2022 at 8:14 Approved by: Lisa Elena M.D. on 11/18/2022 at 8:18
[2022-11-18 05:30] LABS: Troponin I < 0.012 ng/mL (0.01-0.034)
--- NOTE | 2022-11-18 06:25 | PM.HP.1 ---
History of Present Illness History of Present Illness Date Patient Seen: 11/18/22 Time Patient Seen: 06:25 Chief complaint: chest pain Narrative: 61 year old female with diabetes, GERD, hiatal hernia, HTN, HLD and obesity here with chest pressure radiating to her jawa that woke her from sleep at 0200. She states she also felt like she could not get a good breath and that her breathing was rapid. She denies associated fever, cough, exertional component. She has recently had a medication adjustment for her GERD and Levsin was added as she is on Protonix 40 mg bid with continued symptoms. When queried she states she had a stress test about 8-10 years ago but none since and she is nervous that it could be her heart. She was evaluated in the ED and CTA chest was negative. She was noted to be quite hypertensive on arrival and was given 2 NTG and aspirin and the HTN has resolved. EKG was unrevealing and troponin x 2 negative. [facility] Medical History (Updated 11/18/22 @ 06:46 by Ciara Peterson MD) FH: cholecystectomy Social History household members: significant other Smoking Status: Former smoker Meds Home Medications and Allergies Home Medications Medication Instructions Recorded Confirmed Type benzonatate 100 mg capsule 100 mg PO BID PRN cough #14 caps 09/09/18 09/06/22 Rx (Kaley Marcano) ketorolac 10 mg tablet 10 mg PO TID PRN pain #14 tabs 02/10/20 09/06/22 Rx atenolol 25 mg tablet 25 mg PO DAILY 02/22/21 09/06/22 History Allergies Allergy/AdvReac Type Severity Reaction Status Date / Time loracarbef [From LORABID] Allergy Unknown Verified 09/06/22 12:13 loratadine [From CLARITIN] Allergy Unknown Verified 09/06/22 12:13 meperidine [From DEMEROL] Allergy Unknown Verified 09/06/22 12:13 Review of Systems Constitutional Comments: no fever Cardiovascular Comments: chest pain, no exertional symptoms Respiratory Comments: mild dyspnea, no cough Gastrointestinal Comments: significant dyspepsia Musculoskeletal Comments: no peripheral edema Neurologic Comments: no weakness Endocrine Comments: no polydipsia Exam Vital Signs (past 8 hours): - 11/18/22 02:51 11/18/22 02:59 11/18/22 02:51 Temperature 97.1 F L Pulse Rate 78 74 88 Respiratory Rate 20 Blood Pressure 216/96 H 216/96 H Pulse Oximetry 98 97 Oxygen Delivery Method Room Air 11/18/22 03:00 11/18/22 03:00 11/18/22 03:07 Temperature Pulse Rate 77 72 Respiratory Rate 13 14 Blood Pressure 144/74 H Pulse Oximetry 98 96 Oxygen Delivery Method 11/18/22 03:07 11/18/22 03:12 11/18/22 03:12 Temperature Pulse Rate 78 Respiratory Rate 12 Blood Pressure 134/74 132/65 Pulse Oximetry 95 Oxygen Delivery Method 11/18/22 03:30 11/18/22 03:30 11/18/22 04:00 Temperature Pulse Rate 64 Respiratory Rate Blood Pressure 121/57 L 110/56 L Pulse Oximetry 92 Oxygen Delivery Method 11/18/22 04:00 11/18/22 04:30 11/18/22 04:44 Temperature Pulse Rate 59 L 54 L Respiratory Rate 12 16 Blood Pressure 110/58 L Pulse Oximetry 93 94 Oxygen Delivery Method 11/18/22 04:44 11/18/22 05:00 11/18/22 05:02 Temperature Pulse Rate 58 L 56 L 56 L Respiratory Rate 20 16 15 Blood Pressure Pulse Oximetry 97 96 97 Oxygen Delivery Method 11/18/22 05:02 11/18/22 05:30 11/18/22 05:38 Temperature Pulse Rate 67 63 Respiratory Rate 15 18 Blood Pressure 113/56 L Pulse Oximetry 93 96 Oxygen Delivery Method 11/18/22 05:38 Temperature Pulse Rate Respiratory Rate Blood Pressure 144/64 H Pulse Oximetry Oxygen Delivery Method Oxygen Delivery Method Room Air Const General: cooperative, healthy appearing, comfortable, No acute distress, No diaphoretic and No ill appearing HENMT Head: normal to inspection Face and sinus: normal facial exam Neck Neck: No JVD Chest Other: pain ? reproducible Resp Effort & Inspection: normal respiratory effort, able to speak in complete sentences, no nasal flaring, no retractions and no use of accessory muscles Auscultation: clear to auscultation bilaterally Cardio Rate: regular rate Rhythm: regular rhythm Heart Sounds: S1 normal and S2 normal GI Inspection: no visible herniation Palpation: soft and No tender Skin Rashes: no rashes Neuro General: patient alert and patient oriented x3 Cognition: normal cognition Speech: speech normal Motor: muscle tone normal throughout Extrem Right upper extremity: normal to inspection Left upper extremity: normal to inspection Right lower extremity: normal to inspection Left lower extremity: normal to inspection Other: trace edema Objective ECG Impression: NSR no ischemic changes Imaging CT scan - chest: Radiologist's impression: no acute findings Labs 11/18/22 02:55 11/18/22 02:55 Labs: Laboratory Results - last 24 hr 11/18/22 11/18/22 11/18/22 02:55 02:55 05:00 WBC 9.1 RBC 4.54 Hgb 14.5 Hct 42.6 MCV 93.7 MCH 32.0 MCHC 34.1 RDW 12.8 Plt Count 246 Neut % (Auto) 54.0 Lymph % (Auto) 36.0 [place] % (Auto) 6.7 Eos % (Auto) 2.3 Baso % (Auto) 1.0 Neut # (Auto) 4900 Lymph # (Auto) 3300 [place] # (Auto) 600 Eos # (Auto) 200 Baso # (Auto) 100 Sodium 140 Potassium 3.8 Chloride 104 Carbon Dioxide 27 BUN 9 Creatinine 0.77 Estimated GFR > 60 BUN/Creatinine Ratio 11.7 Glucose 113 H Calcium 9.2 Total Bilirubin 0.5 AST 24 ALT 18 Alkaline Phosphatase 100 Total Creatine Kinase 46 Troponin I < 0.012 < 0.012 Total Protein 7.3 Albumin 4.1 Globulin 3.2 Albumin/Globulin Ratio 1.3 Lipase 130 Assessment & Plan Assessment and plan (1) Chest pain: Status: Acute (2) Chronic GERD: Status: Acute Assessment & Plan narrative: Chest pain has 2 sets of negative enzymes, will repeat x 1 but suspect negative ordered ECHO to evaluate wall motion and EF should have outpatient cardiac evaluation if troponin remains negative and ECHO not worrisome did not order more ASA with patient's significant GERD admitted for CP rule out due to multiple risk factors Hypertension very hypertensive on arrival but improved and not normotensive continue metoprolol 12.5 mg bid and Norvasc 5 mg daily Diabetes patient states she takes lispro 20 units before breakfast and 22 units with dinner unclear why she does not take Lantus if EF reduced, may benefit from the addition of Januvia GERD the pain central radiating to jaw could be esophageal spasm from her significant GERD continuing the Levsin at 0.25 mg prn and protonix 40 mg bid also has small hiatal hernia
[2022-11-18 06:49] LABS: Cholesterol 186 mg/dL (140-199); HDL Cholesterol 38 mg/dL (40-60); LDL Cholesterol Calculated 114 mg/dL (<100); Triglycerides 168 mg/dL (35-150)
--- NOTE | 2022-11-18 07:14 | DI.ECHO.S_ITS ---
[facility] +---------+ : : [address] : [place] : : : : [id number] : : : : Phone: [phone] Echocardiogram Report + + :Name: PEDRO BLUE Study Date: 11/18/2022 Height: 68 in : :[facility] ReadingLocation: Weight: 242 lb : : Gender: Female BSA: 2.2 m2 : :: 1960 Age: 61 yrs BP: 125/59 mmHg: :Reason For Study: CHEST PAIN : :Ordering Physician: DEVORAH, : :JEANNINE DENNY Performed By: Rachelle Wang : :Referring: JEANNINE FAIRCHILD : + + Interpretation Summary Normal sinus rhythm. Normal LV size and wall thickness; normal wall motion and LV systolic function. EF is 65-70%. Normal chamber sizes. No valvular abnormalities. Compared to prior study 01/11/2018 no significant changes have occurred. Procedure: A two-dimensional transthoracic echocardiogram with color flow and Doppler was performed. The study quality was technically difficult. A contrast injection of Definity was performed to improve assessment of LV function. Comparison is made with the echocardiogram of 01/11/2018. The patient was in sinus rhythm with heart rates between 57-67 bpm during the exam. Left Ventricle: The left ventricle is normal in size and wall thickness. The ejection fraction is estimated to be 65-70%. Right Ventricle: The right ventricle grossly appears normal in size with probable normal systolic function. Atria: The left atrial size is normal. Right atrial size is normal. There is no Doppler evidence for an interatrial shunt. Mitral Valve: The mitral valve is normal in structure and function. There is no mitral regurgitation noted. Aortic Valve: The aortic valve is not well visualized. The aortic valve is grossly normal. There is no aortic valve stenosis. No aortic regurgitation is present. Tricuspid Valve: The tricuspid valve is normal in structure and function. There is mild tricuspid regurgitation. The right ventricular systolic pressure is estimated to be at least 23 mmHg based on an estimated right atrial pressure of 3 mm Hg. Pulmonic Valve: The pulmonic valve is not well seen, but is grossly normal. There is trace pulmonic regurgitation. Great Vessels: The aortic root is normal size. The dimensions of the ascending aorta are normal. The IVC is of normal diameter and collapses greater than 50% with a sniff. This suggests a low right atrial pressure of 3 mm Hg. Pericardium/ Pleura There is no pericardial effusion. There is no pleural effusion. MMode/2D Measurements & Calculations LVIDd: 5.2 cm LVOT diam: 2.0 cm LVIDs: 3.2 cm Ao root diam: 3.2 cm FS: 37.9 % asc Aorta Diam: 3.6 cm IVSd: 0.88 cm Ao Arch Diam (Prox Trans): 3.1 cm LVPWd: 0.90 cm LV fitzpatrick. diameter/BSA (cm/m^2): 2.4 LV sys. diameter/BSA (cm/m^2): 1.5 LA A2 area: 12.5 cm2 RA long axis: 4.5 cm LA A4 area: 18.0 cm2 RA area: 15.6 cm2 LA length (vol): 5.4 cm RA vol: 46.2 ml LA vol: 35.5 ml RA : 20.9 ml/m2 LA vol index: 16.0 ml/m2 IVC diam: 1.6 cm RVD1 (basal): 3.7 cm RVD2 (mid): 3.2 cm Doppler Measurements & Calculations Ao V2 max: 147.6 cm/sec LVOT Max Fortino: 99.4 cm/sec Ao V2 mean: 96.5 cm/sec LV V1 max P.9 mmHg Ao max P.7 mmHg LV V1 VTI: 19.9 cm Ao mean P.3 mmHg JOSELYN(I,D): 2.2 cm2 Ao V2 VTI: 27.2 cm JOSELYN(V,D): 2.0 cm2 sev ratio: 0.73 JOSELYN indexed to BSA (cm^2/m^2): 0.99 MV E max fortino: 73.1 cm/sec TR max fortino: 222.2 cm/sec MV A max fortino: 78.8 cm/sec TR max P.7 mmHg MV E/A: 0.93 PA V2 max: 91.4 cm/sec Med Peak E' Fortino: 5.6 cm/sec PA V2 mean: 63.6 cm/sec E/E' med: 12.9 PA mean P.8 mmHg Lat Peak E' Fortino: 8.3 cm/sec E/E' lat: 8.8 E/e' average: 10.9 MV dec time: 0.20 sec SV(LVOT): 59.8 ml Electronically signed by: Amina Bryan M.D. on Reading Physician:11/18/2022 04:00 PM
--- NOTE | 2022-11-18 11:08 | PC.NURSE ---
Addendum entered by Сергей Rasheed R.N. 11/18/22 12:22: Pt back to room via wheelchair @11:50, resting in bed, sister at bedside. Original Note: Pt to Radiology for stress test
--- NOTE | 2022-11-18 11:17 | CM.DANOTE ---
DCP Assessment Note: Patient is a 61yo female here for chest pain/SOB. PCP Maite Whatley PPO and self pay CONTINUOUS VULCANIZING MACHINE OPERATOR reviewed EMR. Per hospitalist, echo/stress test today and then potentially home. CONTINUOUS VULCANIZING MACHINE OPERATOR entered room and introduced self and role. Patient was sitting up in bed and appeared A/Ox4. Patient was accompanied by sister/emergency contact Leanna ([phone]). Patient lives alone in [place], active/indep/drives. No DME. stress test soon. Plan: likely to dc home. either transport self or sister Leanna. No needs identified at this time. CM team will follow as needed. FERNANDO Mina Discharge Planning/Care Management CM Discharge Assessment Start: 11/18/22 11:15 Freq: Status: Active Protocol: Document 11/18/22 11:15 (Rec: 11/18/22 11:16 [id number]) Discharge Planning Assessment Assigned Teacher Private FERNANDO Schreiber DPOA/Assigned Designee Name Leanna (sister) Contact Information [phone] Advance Directives? No History Provided By Patient,Medical Record Prior Living Arrangements House Household Members none Type of transporation used prior to Drives own vehicle admit Independent with ADL's Yes Is patient alert and oriented? Yes Barriers to Discharge No Discharge Plan Home Transportation Arrangement self or sister Whiteboard Updated in Patient Room with Yes name and ext. # of Teacher Private Review Status In Process Next Review Type Continued Stay Review
[2022-11-18] MEDS: ACETAMINOPHEN 325 MG TABLET 650 MG PO (12:14)
--- NOTE | 2022-11-18 13:09 | PM.HP.1 ---
History of Present Illness History of Present Illness Date Patient Seen: 11/18/22 Time Patient Seen: 13:09 Chief complaint: chest pain Narrative: 61 year old female with diabetes, GERD, hiatal hernia, HTN, HLD and obesity here with chest pressure radiating to her jawa that woke her from sleep at 0200. She states she also felt like she could not get a good breath and that her breathing was rapid. She denies associated fever, cough, exertional component. She has recently had a medication adjustment for her GERD and Levsin was added as she is on Protonix 40 mg bid with continued symptoms. She has a gastric ulcer diagnosed back in June or July with endoscopy and follows with GI and cardiology. When queried she states she had a stress test about 8-10 years ago but none since and she is nervous that it could be her heart. She was evaluated in the ED and CTA chest was negative. She was noted to be quite hypertensive on arrival and was given 2 NTG and aspirin and the HTN has resolved. EKG was unrevealing and troponin x 2 negative. REPLACED BY [facility] Medical History (Updated 11/18/22 @ 08:41 by Salena Alexander RN) Arthritis Bulging of cervical intervertebral disc Bursitis Diabetes FH: cholecystectomy Hiatal hernia Sciatica Seasonal allergies Ulcer Social History household members: none Smoking Status: Former smoker Meds Home Medications and Allergies Home Medications Medication Instructions Recorded Confirmed Type Flonase 1 inh inhalation DAILY 11/18/22 11/18/22 History amlodipine 5 mg PO DAILY 11/18/22 11/18/22 History hyoscyamine sulfate 0.125 tab PO PRN PRN Chest Pain 11/18/22 11/18/22 History insulin lispro protamine-lispro 20 unit SUBCUT BID 11/18/22 11/18/22 History 100 unit/mL (75-25) subcutaneous pen lovastatin 20 mg tablet 20 mg PO DAILY 11/18/22 11/18/22 History metoprolol tartrate 25 mg tablet 12.5 mg PO BID 11/18/22 11/18/22 History pantoprazole 40 mg tablet,delayed 40 mg PO BID 11/18/22 11/18/22 History release Allergies Allergy/AdvReac Type Severity Reaction Status Date / Time loracarbef [From LORABID] Allergy Unknown Verified 09/06/22 12:13 loratadine [From CLARITIN] Allergy Unknown Verified 09/06/22 12:13 meperidine [From DEMEROL] Allergy Unknown Verified 09/06/22 12:13 Review of Systems Review of Systems Narrative: All other systems reviewed with the patient and are negative unless otherwise stated. Exam Vital Signs (past 8 hours): - 11/18/22 05:30 11/18/22 05:38 11/18/22 05:38 Temperature Pulse Rate 67 63 Respiratory Rate 15 18 Blood Pressure 144/64 H Pulse Oximetry 93 96 Oxygen Delivery Method Oxygen Flow Rate 11/18/22 06:00 11/18/22 06:00 11/18/22 06:30 Temperature Pulse Rate 65 63 Respiratory Rate 16 20 Blood Pressure 142/77 H Pulse Oximetry 97 95 Oxygen Delivery Method Oxygen Flow Rate 11/18/22 06:31 11/18/22 06:31 11/18/22 07:00 Temperature Pulse Rate 55 L Respiratory Rate 19 Blood Pressure 133/67 113/62 Pulse Oximetry 95 Oxygen Delivery Method Oxygen Flow Rate 11/18/22 07:00 11/18/22 07:39 11/18/22 08:44 Temperature 97.6 F Pulse Rate 56 L 58 L Respiratory Rate 16 16 Blood Pressure 125/59 L Pulse Oximetry 95 98 Oxygen Delivery Method Room Air Oxygen Flow Rate 0 11/18/22 12:27 Temperature Pulse Rate 68 Respiratory Rate 16 Blood Pressure 114/60 Pulse Oximetry 95 Oxygen Delivery Method Oxygen Flow Rate 0 Oxygen Delivery Method Room Air Oxygen Flow Rate 0 Narrative Exam Narrative: General:? Patient is well developed and well nourished, in no distress at this time. Musculoskeletal:? Muscle strength and tone are equal within normal limits, no deformity. Extremities: No edema or joint effusions. No cyanosis or clubbing. Skin:? Pale,? Warm to touch,dry and intact without rashes, ulcerations or petechiae.? Neuro:? Alert and orientated x3,? sensation to touch intact in all extremities, no gross deficits noted of cranial nerves. Psych:? Patient has a well-kept appearance, appropriate affect, mental status attitude thought context and judgment are appropriate for age. Objective ECG Impression: Normal sinus rhythm Labs 11/18/22 02:55 11/18/22 02:55 Labs: Laboratory Results - last 24 hr 11/18/22 11/18/22 11/18/22 02:55 02:55 05:00 WBC 9.1 RBC 4.54 Hgb 14.5 Hct 42.6 MCV 93.7 MCH 32.0 MCHC 34.1 RDW 12.8 Plt Count 246 Neut % (Auto) 54.0 Lymph % (Auto) 36.0 [place] % (Auto) 6.7 Eos % (Auto) 2.3 Baso % (Auto) 1.0 Neut # (Auto) 4900 Lymph # (Auto) 3300 [place] # (Auto) 600 Eos # (Auto) 200 Baso # (Auto) 100 Sodium 140 Potassium 3.8 Chloride 104 Carbon Dioxide 27 BUN 9 Creatinine 0.77 Estimated GFR > 60 BUN/Creatinine Ratio 11.7 Glucose 113 H Calcium 9.2 Total Bilirubin 0.5 AST 24 ALT 18 Alkaline Phosphatase 100 Total Creatine Kinase 46 Troponin I < 0.012 < 0.012 Total Protein 7.3 Albumin 4.1 Globulin 3.2 Albumin/Globulin Ratio 1.3 Triglycerides Cholesterol LDL Cholesterol, Calc HDL Cholesterol Lipase 130 11/18/22 05:00 WBC RBC Hgb Hct MCV MCH MCHC RDW Plt Count Neut % (Auto) Lymph % (Auto) [place] % (Auto) Eos % (Auto) Baso % (Auto) Neut # (Auto) Lymph # (Auto) [place] # (Auto) Eos # (Auto) Baso # (Auto) Sodium Potassium Chloride Carbon Dioxide BUN Creatinine Estimated GFR BUN/Creatinine Ratio Glucose Calcium Total Bilirubin AST ALT Alkaline Phosphatase Total Creatine Kinase Troponin I Total Protein Albumin Globulin Albumin/Globulin Ratio Triglycerides 168 H Cholesterol 186 LDL Cholesterol, Calc 114 H HDL Cholesterol 38 L Lipase Assessment & Plan Assessment and plan (1) Chest pain: Status: Acute (2) Chronic GERD: Status: Acute Assessment & Plan narrative: Chest pain with shortness of breath - further risk stratifcation with treadmill EKG stress testing, and echocardiogram given shortness of breath. HEART score is 4-5. - Discussed with cardiology, overnight provider for additional history and to come up with plan. - consider PAH, pulmonary etiology. Will help elucidate these etiologies with complete echo. - troponins negative, ACS unlikely Hypertension very hypertensive on arrival but improved now continue metoprolol 12.5 mg bid and Norvasc 5 mg daily Diabetes patient states she takes lispro 20 units before breakfast and 22 units with dinner if EF reduced, may benefit from the addition of Januvia GERD the pain central radiating to jaw could be esophageal spasm from her significant GERD continuing the Levsin at 0.25 mg prn and protonix 40 mg bid also has small hiatal hernia - has prior manometry which was unremarkable. Obesity- The patient is at much higher risk for medical and surgical complications because of their obesity. This increases the difficulty and complexity of medical and surgical interventions and increases the chances of poor outcomes such as morbidity and mortality. Code: full, surrogate is sister DVT: ambulatory, low risk I have utilized all available immediate resources to obtain, update, or review the patient's current medications. Dispo: Admit observation, likely discharge home same day if unremarkable evaluation. Quality MIPS - Admit I confirm the patient?s Advance Care Plan is present, Code status is documented, Surrogate decision maker is in patient?s record [If Yes, STOP here]: Yes
--- NOTE | 2022-11-18 17:20 | P.DS_ITS ---
History of Present Illness History of Present Illness Date Patient Seen: 11/18/22 Time Patient Seen: 17:20 Chief complaint: chest pain Narrative: 61 year old female with diabetes, GERD, hiatal hernia, HTN, HLD and obesity here with chest pressure radiating to her jawa that woke her from sleep at 0200. She states she also felt like she could not get a good breath and that her breathing was rapid. She denies associated fever, cough, exertional component. She has recently had a medication adjustment for her GERD and Levsin was added as she is on Protonix 40 mg bid with continued symptoms. She has a gastric ulcer diagnosed back in June or July with endoscopy and follows with GI and cardiology. When queried she states she had a stress test about 8-10 years ago but none since and she is nervous that it could be her heart. She was evaluated in the ED and CTA chest was negative. She was noted to be quite hypertensive on arrival and was given 2 NTG and aspirin and the HTN has resolved. EKG was unrevealing and troponin x 2 negative. Discharge Providers Provider Date of admission: 11/18/22 05:50 Discharge Date: 11/18/22 Primary care physician: Maite Perez DO Discharge provider: Rafat Conklin DO Summary Hospital Course Discharge Diagnosis: Chest pain with shortness of breath Hypertension Diabetes GERD Obesity- Hospital Course: This is a 61 year old female with PMH of HTN, DM, GERD admitted for further evaluation of chest pain and dyspnea. She had an intermediate risk score and stress testing was recommended. She underwent treadmill EKG stress testing which was deemed low risk. Echocardiogram was performed and showed no wall motion abnoramlities, a normal EF, and no significant valvular disease. Consider outpatient Pulmonary function testing for further evaluation of her dyspnea, and chest pain is thought to be related to her long standing GERD at the time of discharge. Time Spent with Patient Time spent: Greater than 30 minutes Exam Vital Signs (past 8 hours): - 11/18/22 12:27 11/18/22 16:00 Temperature 98.3 F Pulse Rate 68 63 Respiratory Rate 16 16 Blood Pressure 114/60 110/60 Pulse Oximetry 95 96 Oxygen Flow Rate 0 0 Oxygen Delivery Method Room Air Oxygen Flow Rate 0 Narrative Exam Narrative: General:? Patient is well developed and well nourished, in no distress at this time. Musculoskeletal:? Muscle strength and tone are equal within normal limits, no deformity. Extremities: No edema or joint effusions. No cyanosis or clubbing. Skin:? Pale,? Warm to touch,dry and intact without rashes, ulcerations or petechiae.? Neuro:? Alert and orientated x3,? sensation to touch intact in all extremities, no gross deficits noted of cranial nerves. Psych:? Patient has a well-kept appearance, appropriate affect, mental status attitude thought context and judgment are appropriate for age. Objective Labs 11/18/22 02:55 11/18/22 02:55 Labs: Laboratory Results - last 24 hr 11/18/22 11/18/22 11/18/22 02:55 02:55 05:00 WBC 9.1 RBC 4.54 Hgb 14.5 Hct 42.6 MCV 93.7 MCH 32.0 MCHC 34.1 RDW 12.8 Plt Count 246 Neut % (Auto) 54.0 Lymph % (Auto) 36.0 [place] % (Auto) 6.7 Eos % (Auto) 2.3 Baso % (Auto) 1.0 Neut # (Auto) 4900 Lymph # (Auto) 3300 [place] # (Auto) 600 Eos # (Auto) 200 Baso # (Auto) 100 Sodium 140 Potassium 3.8 Chloride 104 Carbon Dioxide 27 BUN 9 Creatinine 0.77 Estimated GFR > 60 BUN/Creatinine Ratio 11.7 Glucose 113 H Calcium 9.2 Total Bilirubin 0.5 AST 24 ALT 18 Alkaline Phosphatase 100 Total Creatine Kinase 46 Troponin I < 0.012 < 0.012 Total Protein 7.3 Albumin 4.1 Globulin 3.2 Albumin/Globulin Ratio 1.3 Triglycerides Cholesterol LDL Cholesterol, Calc HDL Cholesterol Lipase 130 11/18/22 05:00 WBC RBC Hgb Hct MCV MCH MCHC RDW Plt Count Neut % (Auto) Lymph % (Auto) [place] % (Auto) Eos % (Auto) Baso % (Auto) Neut # (Auto) Lymph # (Auto) [place] # (Auto) Eos # (Auto) Baso # (Auto) Sodium Potassium Chloride Carbon Dioxide BUN Creatinine Estimated GFR BUN/Creatinine Ratio Glucose Calcium Total Bilirubin AST ALT Alkaline Phosphatase Total Creatine Kinase Troponin I Total Protein Albumin Globulin Albumin/Globulin Ratio Triglycerides 168 H Cholesterol 186 LDL Cholesterol, Calc 114 H HDL Cholesterol 38 L Lipase [facility] Medical History (Updated 11/18/22 @ 08:41 by Salena Alexander RN) Arthritis Bulging of cervical intervertebral disc Bursitis Diabetes FH: cholecystectomy Hiatal hernia Sciatica Seasonal allergies Ulcer Social History household members: none Smoking Status: Former smoker Discharge Plan Discharge Plan Patient Disposition: Home Provider Discharge Comment: You were admitted to the hospital with chest pain. Stress testing was unremarkable and low risk. Ultrasound was unremarkable of your heart. Consider pulmonary function testing with PCP or store operations manager. Follow up with your GI provider as previously schedule. Discharge orders & Medications Prescriptions: Continued pantoprazole 40 mg tablet,delayed release (DR/EC) 40 mg PO BID lovastatin 20 mg tablet 20 mg PO DAILY insulin lispro protamin-lispro 100 unit/mL (75-25) insulin pen 20 unit SUBCUT BID Patient Comments: 20 units in AM, 22 units in PM metoprolol tartrate 25 mg tablet 12.5 mg PO BID Flonase aerosol 1 inh inhalation DAILY amlodipine 5 mg tablet 5 mg PO DAILY hyoscyamine sulfate 0.125 mg tablet 0.125 tab PO PRN PRN (Reason: Chest Pain) Patient Comments: Pt takes as needed for chest pain r/t hernia (usually after eating) Follow up/Referrals: Maite Perez, [Primary Care Provider] - Diet/Activity/Treatments Diet: Diet as Tolerated and Regular Activity: As tolerated, no restrictions Visit Report/Discharge Packet Instructions: DI for Gastroesophageal Reflux Disease (GERD), DI for Atypical Chest Pain, DI for Chest Pain Stand Alone Forms: Patient Portal/API, Stroke Signs & Symptoms Discharge Data Primary Care Provider: Maite Perez Attending Provider: Ciara Peterson Admit Date/Time: 11/18/22 05:50 Discharges patient from system. Discharge Date/Time: 11/18/22 18:21
--- NOTE | 2022-11-18 18:14 | PC.NURSE ---
Pt is dressed and ready for discharge home. Her IV and tele have been removed. She is able to drive herself home and her car is by the ER entrance. Went over d/c instructions with Pt and Sister-discussed d/c meds, time of last dose, reviewed stroke education, no new medications, reminded Pt to make a follow up appointment with her PCP to discuss her hospital admission, and reminded Pt that if she had chest pain or shortness of breath that does not resolve with rest to call 911 or come to the ER. Pt denied further questions and was taken out via w/c by RN to pov with all belongings.
--- NOTE | 2022-11-18 18:57 | DI.NM.S_ITS ---
DATE OF SERVICE: 11/18/2022 PROCEDURE: Exercise stress test INDICATIONS: Chest pain with underlying hypertension hyperlipidemia, diabetes, GERD, obesity, hiatal hernia. CARDIAC STRESS: Patient underwent exercise stress test under the supervision of an attending staff. She walked on Daniel protocol for 6 minutes and 12 seconds, achieved maximum heart rate of 149, which was 94% of target heart rate. Normal blood pressure response. Resting blood pressure 108/76 and peak blood pressure 186/80 mmHg. Achieved 7 METs of workload. GAURI positive 8%. Baseline rhythm was sinus. During stress, no convincing ischemic changes seen. No significant arrhythmias seen. The patient felt fatigue, mild shortness of breath and mild substernal chest tightness. CONCLUSION: Exercise stress test is negative for inducible ischemia. Normal hemodynamic response. Diminished exercise tolerance. No significant arrhythmias. The patient had mild chest tightness, shortness of breath and fatigue without any ischemic changes on EKG or significant arrhythmias. Correlate clinically. Jackie Stauffer - MILL TENDER/abdias/devin doc#: [id number]/job#: [id number] dd: 11/18/2022 12:41:00 dt: 11/18/2022 18:44:00 DICTATING MD/COPIES TO: Rizwana Stallings MD COPIES MNE: MAYRA;
== END 2022-11-18 18:21 | disposition home or self-care (01) ==
LOC: ED 05:50 → AC 05:51
PROVIDERS: Admitting Provider Internal Medicine; Emergency Provider Emergency Medicine; PCP Family Medicine; Referring Provider Emergency Medicine; Visit Provider Internal Medicine
DX: R07.9 Chest pain, unspecified (principal); R06.02 Shortness of breath; E11.9 Type 2 diabetes mellitus without complications; I10 Essential (primary) hypertension; E78.5 Hyperlipidemia, unspecified; K21.9 Gastro-esophageal reflux disease without esophagitis; E66.9 Obesity, unspecified
CPT/HCPCS: 36415; 71045; 71275; 80053; 80061; 82550; 82962; 83690; 84484; 85025; 93005; 93010; 93017; 96374; 96375; 99284; 99285; G0378; C8929; C9113; J2405; Q9957; Q9967

== ENCOUNTER 2023-05-16 17:22 | Emergency (ER) | payer OTHER, SELFPAY ==
[2022-11-18 07:30] VITALS: BMI 36.8
[2023-05-16] VITALS (13 sets, daily range): BP systolic 111–162; BP diastolic 59–94; PULSE 72–101; RESP 11–26; TEMP 36.9; O2SAT 95–99; BMI 36.9
--- NOTE | 2023-05-16 17:44 | DI.RAD.S_ITS ---
PROCEDURE: XR CHEST 1V INDICATIONS: chest pain TECHNIQUE: One view of the chest was acquired. COMPARISON: [facility], CR, XR CHEST 1V, 11/18/2022, 3:00. [facility], CR, XR CHEST 1V, 12/29/2020, 8:18. FINDINGS: Surgical changes and devices: None. Lungs and pleura: Lungs are clear. No pleural effusions or pneumothorax. Mediastinum: Mediastinal contours appear normal. Heart size is normal. Bones and chest wall: No suspicious bony lesions. Overlying soft tissues appear unremarkable. IMPRESSION: No acute cardiopulmonary abnormality is seen. Dictated by: Mateo Cha M.D. on 05/16/2023 at 18:12 Approved by: Mateo Cha M.D. on 05/16/2023 at 18:14
[2023-05-16 18:58] LABS: Add Manual Diff / Slide Review NO; Basophils Absolute Auto 0 /uL (0-100); Basophils Percent Auto 0.3 % (0-2); Eosinophils Absolute Auto 100 /uL (0-450); Eosinophils Percent Auto 0.9 % (2-4); Hematocrit 40.5 % (36-46); Hemoglobin 13.9 g/dL (12.0-16.0); Lymphocytes Absolute Auto 2400 /uL (1100-4500); Lymphocytes Percent Auto 25.8 % (25-40); Mean Corpuscular HGB Conc 34.5 % (30-36); Mean Corpuscular Hemoglobin 33.1 PG (26-34); Mean Corpuscular Volume 96.1 fL (80-100); Monocytes Absolute Auto 700 /uL (0-900); Monocytes Percent Auto 7.5 % (3-14); Neutrophils Absolute Auto 6200 /uL (1500-7000); Neutrophils Percent Auto 65.5 % (50-75); Platelet Count 265 X10^3/uL (150-400); Red Blood Cell Count 4.21 X10^6/uL (4.0-5.2); Red Cell Distribution Width 12.6 % (11.6-14.8); White Blood Cell Count 9.4 X10^3/uL (4.5-11.0)
[2023-05-16 18:59] LABS: Prothrombin Time 11.8 SECONDS (9.4-12.5)
--- NOTE | 2023-05-16 18:59 | PC.NURSE ---
Patient had a left lower abcessed tooth that she got removed on last week. She recently had some antibiotics found out that the infection was resistant to it. She went back in and had an injection of antibiotics on Tuesday. She now reports that she has chest pain and fluttering in her heart. She reports that she has splintering in her left fingernail and was told by her PCP to look for that in her nails and that it might indicate infection.
[2023-05-16 19:02] LABS: PTT Partial Thromboplastin Tim 34 SECONDS (25.1-36.5)
[2023-05-16 19:04] LABS: Alanine Aminotransferase 19 IU/L (<35); Albumin 4.2 g/dL (3.5-5.0); Albumin Globulin Ratio 1.3 (1.0-2.8); Alkaline Phosphatase 111 U/L (38-126); Aspartate Aminotransferase 21 IU/L (14-36); BUN Creatinine Ratio 12.3 (6-22); Bilirubin Total 0.4 mg/dL (0.2-1.3); Blood Urea Nitrogen 13 mg/dL (7-17); Calcium 9.5 mg/dL (8.4-10.2); Carbon Dioxide 26 mmol/L (22-32); Chloride 105 mmol/L (98-107); Creatine Kinase 50 U/L (30-135); Estimated Glomerular Filt Rate 59 mL/min (>60); Globulin 3.3 g/dL (1.7-4.1); Glucose 187 mg/dL (80-110); HEMOLYSIS < 15 (0-50); Lipase 155 U/L (23-300); Magnesium 1.5 mg/dL (1.6-2.3); Potassium 3.7 mmol/L (3.4-5.1); Sodium 139 mmol/L (137-145); Total Protein 7.5 g/dL (6.3-8.2)
[2023-05-16 19:16] LABS: Troponin I < 0.012 ng/mL (0.01-0.034)
--- NOTE | 2023-05-16 21:24 | ED.CHESTPAIN ---
HPI - Chest Pain General Chief Complaint: Chest Pain Stated Complaint: abcess tooth Time Seen by Provider: 05/16/23 19:01 Source: patient Mode of arrival: Ambulatory History of Present Illness HPI narrative: 62-year-old woman with a history of multiple orthopedic issues, diabetes, hyperlipidemia, reflux, hypertension who recently had abscess to tooth 18., left lower quadrant. Was subsequently on 20 days of amoxicillin has had the tooth removed has been seen by her dentist as well as an oral surgeon. Was still draining and culture eventually showed Streptococcus species that was only intermediately sensitive to amoxicillin. Resistant to clindamycin and is susceptible to cephalosporins. Patient was changed to Keflex and on May 12 received an IM injection of ceftriaxone, 1 g. She states that she is currently feeling better. As the antibiotics were being changed and she was having fevers, chills, palpitations, myalgias and increasing drainage she did note that she had a couple of days where her fit bit showed her heart rate jumping to 220 lasting for a minute or 2 and then returning to baseline. This did in fact happen about 4 times in a row over the course of a 2 hour. She noted the palpitation feeling but did not have any chest pain, orthopnea, dyspnea, diaphoresis or nausea. Over the ensuing couple of days she has had episodes of erratic heart rate going from the 60s to 110 returning back down to the 70s. She has not having any pain with this there is no orthopnea there is no lower extremity edema. Her primary care doctor had mentioned that if she had any splint or hemorrhages in her fingernails she needed to come see the emergency department. This morning she noted 2 small splinter hemorrhages in the left small finger very distal and that appeared to be more trauma than hemorrhages as would be expected from endocarditis. She comes in for further evaluation Related Data Home Medications Medication Instructions Recorded Confirmed Flonase 1 inh inhalation DAILY 11/18/22 11/18/22 amlodipine 5 mg PO DAILY 11/18/22 11/18/22 hyoscyamine sulfate 0.125 tab PO PRN PRN Chest Pain 11/18/22 11/18/22 insulin lispro protamine-lispro 20 unit SUBCUT BID 11/18/22 11/18/22 100 unit/mL (75-25) subcutaneous pen lovastatin 20 mg tablet 20 mg PO DAILY 11/18/22 11/18/22 metoprolol tartrate 25 mg tablet 12.5 mg PO BID 11/18/22 11/18/22 pantoprazole 40 mg tablet,delayed 40 mg PO BID 11/18/22 11/18/22 release Allergies Allergy/AdvReac Type Severity Reaction Status Date / Time loracarbef [From LORABID] Allergy Unknown Verified 09/06/22 12:13 loratadine [From CLARITIN] Allergy Unknown Verified 09/06/22 12:13 meperidine [From DEMEROL] Allergy Unknown Verified 09/06/22 12:13 fentanyl Allergy Verified 05/16/23 17:44 Review of Systems Review of Systems Narrative: Pertinent positive and negative findings as per HPI Patient History Medical History (Updated 05/17/23 @ 00:13 by Elissa Nichols MD) Seasonal allergies Bursitis Sciatica Bulging of cervical intervertebral disc Arthritis Ulcer Hiatal hernia Diabetes FH: cholecystectomy Social History household members: none Smoking Status: Former smoker Smoking Status: Former smoker alcohol intake frequency: a few times a week Substance Use Type: marijuana Exam Initial Vital Signs Initial Vital Signs: Vital Signs Temperature 98.5 F 05/16/23 17:38 Pulse Rate 101 H 05/16/23 17:38 Respiratory Rate 16 05/16/23 17:38 Blood Pressure 162/84 H 05/16/23 17:38 Pulse Oximetry 97 05/16/23 17:38 Oxygen Delivery Method Room Air 05/16/23 17:38 General: Healthy appearing, in no acute distress. Able to give a complete and coherent history. Well-nourished well-developed HEENT: Moist mucous membranes, normal sclera with reactive pupils, no more dental pain, drainage no cervical adenopathy Respiratory: Lungs are clear to auscultation, no wheezing no rales no rhonchi. Full and symmetrical air movement Cardiac: Regular rate and rhythm no murmurs with careful auscultation Abdomen: Soft, nontender, good bowel tones, no flank pain Skin: Warm and dry, no rashes Neurologic: Grossly neurologically intact with no obvious asymmetries or abnormalities Extremities: No trauma, well perfused, 2 small hemorrhages very distal portion of the nail bed right 5th finger. No other abnormalities appreciated Psych: Cooperative, appropriate insight and affect Course Orders Ordered: ED Orders 05/16/23 17:44 XR chest 1V Stat EKG-12 Lead Stat 05/16/23 18:24 Complete Blood Count AUTO DIFF Stat Comprehensive Metabolic Panel Stat Lipase Stat Magnesium Stat PTT Partial Thromboplastin Yuniel Stat Prothrombin Time INR Stat Troponin & CK Cardiac Panel Stat 05/16/23 22:05 BNP [NT-proBNP (BNP-Adult 18+)] Stat Trop I [Troponin I] Stat Discontinued Medications Sodium Chloride (Normal Saline 0.9%) 1,000 mls @ 1,000 mls/hr IV BOLUS ONE Stop: 05/16/23 22:46 Last Admin: 05/16/23 22:01 Dose: 1,000 mls/hr Documented By: Magnesium Sulfate (Magnesium Sulfate) 2 gm in 50 mls @ 150 mls/hr IV NOW ONE Stop: 05/16/23 22:06 Last Infusion: 05/16/23 22:29 Dose: Infused Documented By: MELE Co-signed By: RONDA Admin: 05/16/23 21:58 Dose: 150 mls/hr Documented By: Co-signed By: RONDA Vital Signs Vital signs: Vital Signs - 8 hr 05/16/23 17:38 05/16/23 18:43 05/16/23 18:45 Temperature 98.5 F Pulse Rate 101 H 87 80 Respiratory Rate 16 11 L Blood Pressure 162/84 H Pulse Oximetry 97 99 98 Oxygen Delivery Method Room Air 05/16/23 18:45 05/16/23 19:00 05/16/23 19:00 Temperature Pulse Rate 77 Respiratory Rate 19 Blood Pressure 139/94 H 115/65 Pulse Oximetry 97 Oxygen Delivery Method 05/16/23 19:30 05/16/23 19:30 05/16/23 20:00 Temperature Pulse Rate 77 78 Respiratory Rate 20 18 Blood Pressure 111/65 Pulse Oximetry 96 96 Oxygen Delivery Method 05/16/23 20:00 05/16/23 20:30 05/16/23 20:30 Temperature Pulse Rate 75 Respiratory Rate 17 Blood Pressure 128/75 121/59 L Pulse Oximetry 97 Oxygen Delivery Method Room Air 05/16/23 21:00 05/16/23 21:00 05/16/23 21:30 Temperature Pulse Rate 78 90 Respiratory Rate 19 22 Blood Pressure 122/75 Pulse Oximetry 97 96 Oxygen Delivery Method Room Air 03/04/24 21:30 Temperature Pulse Rate Respiratory Rate Blood Pressure 160/82 H Pulse Oximetry Oxygen Delivery Method MDM - Chest Pain Lab Data 05/16/23 18:24 05/16/23 18:24 Labs: Lab Results 05/16/23 05/16/23 Range/Units 18:24 22:05 WBC 9.4 (4.5-11.0) X10^3/uL RBC 4.21 (4.0-5.2) X10^6/uL Hgb 13.9 (12.0-16.0) g/dL Hct 40.5 (36-46) % MCV 96.1 (80-100) fL MCH 33.1 (26-34) PG MCHC 34.5 (30-36) % RDW 12.6 (11.6-14.8) % Plt Count 265 (150-400) X10^3/uL Neut % (Auto) 65.5 (50-75) % Lymph % (Auto) 25.8 (25-40) % [place] % (Auto) 7.5 (3-14) % Eos % (Auto) 0.9 L (2-4) % Baso % (Auto) 0.3 (0-2) % Neut # (Auto) 6200 (6739-3595) /uL Lymph # (Auto) 2400 (0862-7626) /uL [place] # (Auto) 700 (0-900) /uL Eos # (Auto) 100 (0-450) /uL Baso # (Auto) 0 (0-100) /uL PT 11.8 (9.4-12.5) SECONDS INR 1.0 (0.9-1.3) APTT 34 (25.1-36.5) SECONDS Sodium 139 (137-145) mmol/L Potassium 3.7 (3.4-5.1) mmol/L Chloride 105 (98-107) mmol/L Carbon Dioxide 26 (22-32) mmol/L BUN 13 (7-17) mg/dL Creatinine 1.06 H (0.52-1.04) mg/dL Estimated GFR 59 L (>60) mL/min BUN/Creatinine Ratio 12.3 (6-22) Glucose 187 H (80-110) mg/dL Calcium 9.5 (8.4-10.2) mg/dL Magnesium 1.5 L (1.6-2.3) mg/dL Total Bilirubin 0.4 (0.2-1.3) mg/dL AST 21 (14-36) IU/L ALT 19 (<35) IU/L Alkaline Phosphatase 111 (38-126) U/L Total Creatine Kinase 50 (30-135) U/L Troponin I < 0.012 < 0.012 (0.01-0.034) ng/mL NT-Pro-B Natriuret Pep 56 (<125) pg/mL Total Protein 7.5 (6.3-8.2) g/dL Albumin 4.2 (3.5-5.0) g/dL Globulin 3.3 (1.7-4.1) g/dL Albumin/Globulin Ratio 1.3 (1.0-2.8) Lipase 155 (23-300) U/L MDM Narrative Medical decision making narrative: CC: 62-year-old woman with recent dental abscess and infection seems to have resolved but she has been having some heart palpitations Complicating co-morbidities: Diabetes, hypertension, hyperlipidemia Data collected from: patient Medical records reviewed: Notes from [facility] including discussion regarding antibiotics, return to emergency department and culture results from May 05 from the dental abscess or all reviewed. Medications currently include amlodipine 5 mg daily, diltiazem 240 mg extended release daily, insulin, lovastatin 20 mg nightly, metoprolol tartrate 12.5 mg b.i.d., pantoprazole 40 mg Differential considered: Paroxysmal atrial fibrillation, SVT, sinus arrhythmia, endocarditis, systemic infection, sepsis Exam documented above, pertinent findings include: Exam is actually quite benign. She is remained in sinus rhythm throughout her ER visit. The splinter hemorrhages that she talked to her physician about over the phone today are at the very distal tip of the fingernail and likely are more traumatic rather than endocarditis with no other secondary signs of endocarditis appreciated on clinical exam today Lab Test results independently reviewed as above. Pertinent findings: CBC is unremarkable Chemistries show mild increase in creatinine, magnesium is slightly low Lipase is within normal limit Initial troponin is undetectable, repeat troponin is undetectable Independently reviewed EKG: Sinus rhythm at a rate of 91. Normal intervals, normal axis. No acute ischemic changes Imaging studies independently reviewed: Chest x-ray is unremarkable Treatments: L of fluid, magnesium sulfate 2 g IV is given Re-evaluations: Discussion: 62-year-old woman with palpitations/chest pain. She recently had a dental abscess that was complicated long courses of antibiotics. Completed antibiotics and has noticed over the last couple of days she has had a more erratic heart rate. She has a fit bit and noted that while she was at rest she had 3 episodes where her heart rate went to 220, she felt some fluttering, it spontaneously returned to the typical rate of 60s. She has been treated for hypertension and is on amlodipine as well as metoprolol. Workup today is reassuring. There is no evidence of acute coronary syndrome, cardiomegaly, congestive heart failure. Her EKG is reassuring in the hours she has been here on telemetry has shown sinus rhythm throughout the entire stay. She was noted to be slightly dehydrated with a bumped creatinine so L of fluid was given. She also had slightly low magnesium and 2 g of IV magnesium were given. At this point I suspect that some of the palpitations were related to antibiotics and infection at this point without signs of sepsis, continued infection and resolution of course antibiotics reassurance is given. I have suggested that she follow up with her primary care doctor. At some point outpatient cardiac monitoring with a Zio patch may be helpful for her. She is safe for discharge Discharge Plan Departure Patient Disposition: Home Clinical Impression: Atypical chest pain, Heart palpitations, Dehydration, mild, Hypomagnesemia Instructions: DI for Arrhythmias Activity Restrictions/Additional Instructions: Thank you for coming into Your workup was very reassuring. There is no evidence of pathologic heart rhythm, heart attack or heart attack like syndrome, congestive heart failure, or infection. You were mildly dehydrated and your magnesium was slightly low. Both of these were corrected in the emergency department If you are still noticing some heart rhythm abnormalities, I would follow up with your primary care doctor. They may recommend a Zio patch or other outpatient behavioral science chair to see if we can identify what the rhythm is that you are sensing is palpitations. If you find that you are getting worse or develop any new symptoms, please feel free to return to the emergency department for further evaluation. Prescriptions: No Action pantoprazole 40 mg tablet,delayed release (DR/EC) 40 mg PO BID lovastatin 20 mg tablet 20 mg PO DAILY insulin lispro protamin-lispro 100 unit/mL (75-25) insulin pen 20 unit SUBCUT BID Patient Comments: 20 units in AM, 22 units in PM metoprolol tartrate 25 mg tablet 12.5 mg PO BID Flonase aerosol 1 inh inhalation DAILY amlodipine 5 mg tablet 5 mg PO DAILY hyoscyamine sulfate 0.125 mg tablet 0.125 tab PO PRN PRN (Reason: Chest Pain) Patient Comments: Pt takes as needed for chest pain r/t hernia (usually after eating) Referrals: Maite Perez DO [Primary Care Provider] - Stand Alone Forms: Patient Portal/API
[2023-05-16] MEDS: MAGNESIUM SULFATE 2 GM/50 ML PIGGYBACK IV (21:58)
[2023-05-16] MEDS: SODIUM CHLORIDE 0.9% 1,000 ML 1000 ML IV (22:01)
[2023-05-16 22:45] LABS: NT-proBNP (BNP-Adult 18+) 56 pg/mL (<125); Troponin I < 0.012 ng/mL (0.01-0.034)
[2023-05-17] VITALS: PULSE 72; RESP 22; O2SAT 96
[2023-05-17 00:07] VITALS: BP 150/74; PULSE 79; RESP 17; O2SAT 96
[2023-05-17 00:09] VITALS: BP 146/82; PULSE 81; O2SAT 96
== END 2023-05-17 00:24 | disposition home or self-care (01) ==
PROVIDERS: Emergency Medicine; Emergency Provider Emergency Medicine; PCP Family Medicine
DX: R07.89 Other chest pain (principal); R00.2 Palpitations; E86.0 Dehydration; E83.42 Hypomagnesemia
CPT/HCPCS: 71045; 80053; 82550; 83690; 83735; 83880; 84484; 85025; 85610; 85730; 93005; 93010; 96365; 99284; J3475

== ENCOUNTER → 2023-11-22 07:45 | Outpatient (CLI) | payer OTHER, SELFPAY ==
[2022-11-18 07:30] VITALS: BMI 36.8
== END ==
PROVIDERS: PCP Family Medicine; Visit Provider Nurse Practitioner Family
DX: R30.0 Dysuria (principal)
CPT/HCPCS: 87086

== ENCOUNTER → 2023-11-22 08:15 | Outpatient (CLI) | payer OTHER, SELFPAY ==
[2022-11-18 07:30] VITALS: BMI 36.8
--- NOTE | 2023-11-22 08:17 | DI.RAD.S_ITS ---
PROCEDURE: XR KUB INDICATIONS: poss stones TECHNIQUE: One view of the abdomen acquired. COMPARISON: [facility], CR, XR HIP 2 VIEWS LEFT, 11/02/2023, 8:49. FINDINGS: Surgical changes and devices: None. Bowel: Bowel gas pattern is normal. Soft tissues: No suspicious abdominal calcifications. Visualized solid organ contours appear normal in size. Bones: No suspicious bony lesions. IMPRESSION: No acute abnormality. Dictated by: David Onofre M.D. on 11/23/2023 at 14:44 Approved by: David Onofre M.D. on 11/23/2023 at 14:46
== END ==
PROVIDERS: PCP Family Medicine; Referring Provider Nurse Practitioner Family; Visit Provider Nurse Practitioner Family
DX: R31.9 Hematuria, unspecified (principal)
CPT/HCPCS: 74018; 87086

== ENCOUNTER 2024-02-15 08:36 | Emergency (ER) | payer OTHER, SELFPAY ==
[2022-11-18 07:30] VITALS: BMI 36.8
[2024-02-15 09:17] VITALS: BP 158/72; PULSE 75; RESP 19; TEMP 36.7; O2SAT 96; BMI 36.8
--- NOTE | 2024-02-15 09:37 | ED.EXTPRO ---
HPI - Extremity Problem General Chief complaint: Extremity Problem,Nontraumatic Stated complaint: poss blood clot L foot Time Seen by Provider: 02/15/24 09:37 Source: patient Mode of arrival: Ambulatory History of Present Illness HPI Narrative: 63-year-old woman with a history hypertension, diabetes presents with right heel/ankle pain. Symptoms have been increasing over the last couple of days. She has had plantar fasciitis before and describes this is distinctly different feeling. The pain does not improve with walking as plantar fasciitis has for her in the past. She has not had any trauma, no recent antibiotics or other medications that might have caused tendinopathies. At this point the pain is significant enough that she is having difficulty sleeping and is not able to bear weight. Related Data Home Medications Medication Instructions Recorded Confirmed Flonase 1 inh inhalation DAILY 11/18/22 11/22/23 amlodipine 5 mg PO DAILY 11/18/22 11/22/23 lovastatin 20 mg tablet 20 mg PO DAILY 11/18/22 11/22/23 metoprolol tartrate 25 mg tablet 12.5 mg PO BID 11/18/22 11/22/23 pantoprazole 40 mg tablet,delayed 40 mg PO BID 11/18/22 11/22/23 release insulin lispro protamine-lispro 22 unit SUBCUT BID 11/22/23 11/22/23 100 unit/mL (75-25) subcutaneous pen lactulose 10 gram/15 mL oral ml PO 11/22/23 11/22/23 solution lubiprostone 24 mcg capsule mcg PO 11/22/23 11/22/23 Previous Rx's Medication Instructions Recorded hydrocodone 5 mg-acetaminophen 325 1 tab PO Q6-8H PRN pain #14 tabs 02/15/24 mg tablet prednisone 20 mg tablet 40 mg (2 x 20 mg) PO DAILY #10 tabs 02/15/24 Allergies Allergy/AdvReac Type Severity Reaction Status Date / Time loracarbef [From LORABID] Allergy Unknown Verified 11/22/23 08:03 loratadine [From CLARITIN] Allergy Unknown Verified 11/22/23 08:03 meperidine [From DEMEROL] Allergy Unknown Verified 11/22/23 08:03 fentanyl Allergy Verified 11/22/23 08:03 Review of Systems Review of Systems Narrative: Pertinent positive and negative findings as per HPI Patient History Medical History Seasonal allergies Bursitis Sciatica Bulging of cervical intervertebral disc Arthritis Ulcer Hiatal hernia Diabetes FH: cholecystectomy Social History household members: none Smoking Status: Former smoker Smoking Status: Former smoker alcohol intake frequency: a few times a week Substance Use Type: marijuana Exam Initial Vital Signs Initial Vital Signs: Vital Signs Temperature 98.1 F 02/15/24 09:17 Pulse Rate 75 02/15/24 09:17 Respiratory Rate 19 02/15/24 09:17 Blood Pressure 158/72 H 02/15/24 09:17 Pulse Oximetry 96 02/15/24 09:17 Oxygen Delivery Method Room Air 02/15/24 09:17 General: Alert appropriate in no acute distress Respiratory: Able to speak in full sentences, no obvious respiratory distress Skin: No obvious rashes, warm and dry Neurologic: Grossly intact no obvious asymmetries or abnormalities Psych: appropriate insight and affect, cooperative Extremity: Tenderness along medial calcaneal tibial ligament. No asymmetric edema. No calf tenderness. No tenderness along the Achilles tendon. No tenderness over the plantar fascia or bottom of her heel. No warmth or redness to suggest infection Course Vital Signs Vital signs: Vital Signs - 8 hr 02/15/24 09:17 Temperature 98.1 F Pulse Rate 75 Respiratory Rate 19 Blood Pressure 158/72 H Pulse Oximetry 96 Oxygen Delivery Method Room Air MDM - Extremity (Nontraumatic) MDM Narrative Medical decision making narrative: 63-year-old woman with increasing left ankle pain no trauma Differential diagnosis includes tendinitis, tendon rupture, DVT, infection, septic ankle, fracture On exam she is tender over medial posterior tendon without joint warmth redness or inflammation. She does not have tenderness with passive manipulation of the ankle. There was no swelling of the lower extremities Treatment: Ankle Brian wrap and air brace are placed. She is neurovascularly intact pre and post placement. She does find that with the Brian wrap in place the stability is quite helpful. She is given crutches and crutch training Discussion: 63-year-old woman with increasing left medial ankle pain consistent with acute tendinitis. There was no evidence for fracture, septic joint, DVT, infection. Because she has had ulcers in the past she avoids nonsteroidals. We will place her on 5 days of prednisone for inflammation and pain control, she is requested prescription for Vicodin and will also use Tylenol. She is aware of recommendations for gentle mobilization but significant decreased use of the foot as well as elevation and ice. She will follow up with her primary care physician as needed Discharge Plan Departure Patient Disposition: Home Clinical Impression: Ankle tendinitis Instructions: DI for Posterior Tibial Tendinopathy Activity Restrictions/Additional Instructions: Thank you for coming in today You do not have plantar fasciitis, a blood clot in her leg, infection in your joint or skin, torn Achilles tendon You do have ankle tendinitis. This is inflammation around the tendon exactly where you are hurting. Typically we use nonsteroidals however with your history of ulcer we are going to use steroids for 5 days to help with both pain and inflammation. Use the Brian wrap and the stirrup splint as needed to help with pain control I have given you a prescription for Vicodin to use for pain at night Prescriptions have been electronically transmitted to [facility] in [place] If you find that pain is increasing you are having symptoms you will need to follow up with either your primary care physician or your orthopedist Prescriptions: New prednisone 20 mg tablet 40 mg PO DAILY Qty: 10 0RF hydrocodone-acetaminophen 5-325 mg tablet 1 tab PO Q6-8H PRN (Reason: pain) Qty: 14 0RF No Action lubiprostone 24 mcg capsule PO lactulose 10 gram/15 mL solution PO pantoprazole 40 mg tablet,delayed release (DR/EC) 40 mg PO BID lovastatin 20 mg tablet 20 mg PO DAILY metoprolol tartrate 25 mg tablet 12.5 mg PO BID Flonase aerosol 1 inh inhalation DAILY amlodipine 5 mg tablet 5 mg PO DAILY insulin lispro protamin-lispro 100 unit/mL (75-25) insulin pen 22 unit SUBCUT BID Patient Comments: 20 units in AM, 22 units in PM Referrals: Maite Perez DO [Primary Care Provider] - Stand Alone Forms: Patient Portal/API/Survey
[2024-02-15 09:51] VITALS: PULSE 65; RESP 16; O2SAT 98
[2024-02-15 11:24] VITALS: RESP 16; O2SAT 99
== END 2024-02-15 11:24 | disposition home or self-care (01) ==
PROVIDERS: Emergency Provider Emergency Medicine; PCP Family Medicine
DX: M77.51 Other enthesopathy of right foot and ankle (principal)
CPT/HCPCS: 99282

== ENCOUNTER → 2024-12-31 11:34 | Outpatient (CLI) | payer OTHER, SELFPAY ==
[2022-11-18 07:30] VITALS: BMI 36.8
--- NOTE | 2024-12-31 11:35 | DI.RAD.S_ITS ---
PROCEDURE: XR ANKLE LT MIN 3V INDICATIONS: Pain lateral ankle TECHNIQUE: 3 views of the ankle were acquired. COMPARISON: None. FINDINGS: Bones: No fractures or dislocations. Ankle mortise is normally aligned. No suspicious bony lesions. Plantar calcaneal enthesophyte. Soft tissues: No tibiotalar joint effusion. Achilles tendon appears normal. IMPRESSION: No acute bony abnormality or significant effusion. If symptoms persist with conservative management, consider cross-sectional imaging such as CT or MRI. Approved by: Monica Amador M.D.,Ph.D. on 01/01/2025 at 23:54
== END ==
PROVIDERS: PCP Family Medicine; Referring Provider Nurse Practitioner Family; Visit Provider Nurse Practitioner Family
DX: M25.579 Pain in unspecified ankle and joints of unspecified foot (principal)
CPT/HCPCS: 73610